=== PATIENT | female | born 1950 | race Caucasian/White ===

== ENCOUNTER → 2017-06-28 09:06 | Outpatient (CLI) | payer OTHER, SELFPAY ==
[2017-06-28 10:05] LABS: Hematocrit 42.2 % (37-47); Hemoglobin 14.3 g/dl (12.0-15.0); Mean Corp Hgb Conc 33.9 g/gl (32-36); Mean Corpuscular Hgb 29.5 pg (27.0-32.0); Mean Platelet Vol. 11.6 fl (6.2-12.0); Platelet Count 286 K/mm3 (150-450); RBC Distribution Width CV 12.3 % (11.6-14.6); RBC Distribution Width SD 38.7 fl (35.1-43.9); Red Blood Count 4.85 M/mm3 (4.2-5.4); White Blood Count 6.1 K/mm3 (4.4-11.0)
[2017-06-28 10:06] LABS: Scan Indicated on CBC? Y/N NO
[2017-06-28 10:27] LABS: Cholesterol 120 mg/dL (200); High Density Lipoprotein 35 mg/dL; Triglycerides 278 mg/dL; Very Low Density Lipoprotein 56 mg/dL (5-40)
[2017-06-28 10:35] LABS: Microalbumin:Creatinine Ratio 10.3 mg/g CRE (<30 mg/g CRE)
== END ==
PROVIDERS: Family Provider Family Medicine; PCP Family Medicine; Visit Provider Family Medicine
DX: I10 Essential (primary) hypertension (principal); E11.9 Type 2 diabetes mellitus without complications; E78.00 Pure hypercholesterolemia, unspecified
CPT/HCPCS: 36415; 80061; 82043; 82570; 83036; 85027

== ENCOUNTER → 2017-11-25 10:05 | Outpatient (CLI) | payer MEDICARE, SELFPAY ==
[2017-11-25 12:37] LABS: Hemoglobin A1c 7.5 % (4.2-6.3)
[2017-11-25 12:38] LABS: ALB/GLOB Ratio 1.2 RATIO (0.9-2.4); AST(SGOT) 38 U/L (15-37); Alanine Aminotransfer ALT/SGPT 53 U/L (13-56); Albumin, Serum 3.9 g/dL (3.2-5.0); Alkaline Phosphatase 73 U/L (45-117); Anion Gap 10 (5-15); BUN 15 mg/dL (7-18); BUN/Creat Ratio 18.8 RATIO (10-20); Chloride 101 mmol/L (98-107); Cholesterol 142 mg/dL (200); EST Glomerular Filtration Rate 76 mL/min (>60); Est Glom Filt Rate - Afr Amer 92 mL/min (>60); Globulin 3.2 g/dL (2.2-4.2); Glucose 174 mg/dL (74-106); High Density Lipoprotein 31 mg/dL; Potassium 3.9 mmol/L (3.5-5.1); Protein, Total 7.1 g/dL (6.4-8.2); Sodium Level 140 mmol/L (136-145); Triglycerides 512 mg/dL
== END ==
PROVIDERS: Family Provider Family Medicine; PCP Family Medicine; Visit Provider Family Medicine
DX: E78.00 Pure hypercholesterolemia, unspecified (principal); E11.9 Type 2 diabetes mellitus without complications
CPT/HCPCS: 36415; 80053; 80061; 83036

== ENCOUNTER → 2018-02-04 12:22 | Outpatient (CLI) | payer MEDICARE, SELFPAY ==
[2018-02-04 14:48] LABS: ALB/GLOB Ratio 1.3 RATIO (0.9-2.4); AST(SGOT) 29 U/L (15-37); Alanine Aminotransfer ALT/SGPT 43 U/L (13-56); Albumin, Serum 4.1 g/dL (3.2-5.0); Alkaline Phosphatase 67 U/L (45-117); Anion Gap 6 (5-15); BUN 14 mg/dL (7-18); BUN/Creat Ratio 21.4 RATIO (10-20); Calcium,Total 9.4 mg/dL (8.5-10.1); Chloride 98 mmol/L (98-107); Creatinine, Serum 0.65 mg/dL (0.55-1.02); EST Glomerular Filtration Rate 96 mL/min (>60); Est Glom Filt Rate - Afr Amer 116 mL/min (>60); Globulin 3.1 g/dL (2.2-4.2); Glucose 133 mg/dL (74-106); Potassium 3.9 mmol/L (3.5-5.1); Protein, Total 7.2 g/dL (6.4-8.2); Sodium Level 136 mmol/L (136-145)
== END ==
PROVIDERS: Family Provider Family Medicine; PCP Family Medicine; Visit Provider Family Medicine
DX: R42 Dizziness and giddiness (principal)
CPT/HCPCS: 36415; 80053

== ENCOUNTER → 2018-07-27 | Outpatient (CLI) | payer MEDICARE, SELFPAY ==
[2018-07-27 13:24] LABS: Microalbumin,Random Urine 20.6 mg/L (NO RANGE EST.); Microalbumin:Creatinine Ratio 12.8 mg/g CRE (<30 mg/g CRE)
[2018-07-27 13:43] LABS: ALB/GLOB Ratio 1.2 RATIO (0.9-2.4); AST(SGOT) 34 U/L (15-37); Alanine Aminotransfer ALT/SGPT 38 U/L (13-56); Albumin, Serum 3.9 g/dL (3.2-5.0); Alkaline Phosphatase 72 U/L (45-117); Anion Gap 10 (5-15); BUN 17 mg/dL (7-18); BUN/Creat Ratio 26.2 RATIO (10-20); Calcium,Total 9.1 mg/dL (8.5-10.1); Chloride 102 mmol/L (98-107); Cholesterol 169 mg/dL (200); Creatinine, Serum 0.65 mg/dL (0.55-1.02); EST Glomerular Filtration Rate 96 mL/min (>60); Est Glom Filt Rate - Afr Amer 116 mL/min (>60); Globulin 3.2 g/dL (2.2-4.2); Glucose 187 mg/dL (74-106); High Density Lipoprotein 40 mg/dL; Potassium 3.8 mmol/L (3.5-5.1); Protein, Total 7.1 g/dL (6.4-8.2); Sodium Level 137 mmol/L (136-145); Thyroid Stim Hormone (TSH) 1.14 uIU/mL (0.358-3.74); Triglycerides 456 mg/dL
== END | disposition home or self-care (01) ==
PROVIDERS: Family Provider Family Medicine; PCP Family Medicine; Referring Provider Family Medicine; Visit Provider Family Medicine
DX: E11.8 Type 2 diabetes mellitus with unspecified complications (principal); E78.00 Pure hypercholesterolemia, unspecified
CPT/HCPCS: 36415; 80053; 80061; 82043; 82570; 83036; 84443

== ENCOUNTER → 2018-10-27 | Outpatient (CLI) | payer MEDICARE, SELFPAY ==
[2018-10-27 10:28] LABS: Hemoglobin A1c 7.1 % (4.2-6.3)
[2018-10-27 10:49] LABS: Cholesterol 117 mg/dL (200); High Density Lipoprotein 36 mg/dL; Triglycerides 344 mg/dL; Very Low Density Lipoprotein 69 mg/dL (5-40)
[2018-10-28 12:47] LABS: Hep C Antibodies <0.1 s/co ratio (0.0-0.9)
== END | disposition home or self-care (01) ==
LOC: MFPLAB 09:22
PROVIDERS: Family Provider Family Medicine; PCP Family Medicine; Referring Provider Family Medicine; Visit Provider Family Medicine
DX: E11.8 Type 2 diabetes mellitus with unspecified complications (principal); E78.00 Pure hypercholesterolemia, unspecified; Z11.59 Encounter for screening for other viral diseases
CPT/HCPCS: 36415; 80061; 83036; 86803

== ENCOUNTER → 2019-07-26 10:42 | Outpatient (CLI) | payer MEDICARE, SELFPAY ==
[2019-07-26 13:08] LABS: Absolute Lymphocyte Count 2.06 X10^3/uL (0.83-4.51); Absolute Neutrophil Count 3.3 X10^3/uL (2.0-7.7); Basophil# 0.08 X10^3/uL; Basophil% 1.2 % (0-1); Eosinophil# 0.25 X10^3/uL; Eosinophils% 3.9 % (0-5); Hematocrit 41.1 % (37-47); Hemoglobin 13.7 g/dL (12.0-15.0); Lymphocyte # 2.06 X10^3/ul (4.0); Lymphocyte % 31.8 % (19-41); Mean Corp Hgb Conc 33.3 g/dL (32-36); Mean Corpuscular Hgb 28.5 pg (27.0-32.0); Mean Corpuscular Volume 85.6 fL (81-99); Mean Platelet Vol. 11.5 fl (6.2-12.0); Monocyte# 0.78 X10^3/uL; NRBC Flagged by Analyzer 0 % (0-5); Neutrophil # 3.28 X10^3/uL (2.7-7.7); Neutrophil % 50.6 % (47-70); Platelet Count 262 K/mm3 (150-450); RBC Distribution Width CV 12.1 % (11.6-14.6); RBC Distribution Width SD 37.9 fl (35.1-43.9); White Blood Count 6.5 K/mm3 (4.4-11.0)
[2019-07-26 13:23] LABS: Hemoglobin A1c 8.9 % (3.8-5.6)
[2019-07-26 13:41] LABS: ALB/GLOB Ratio 1.2 RATIO (0.9-2.4); AST(SGOT) 41 U/L (15-37); Alanine Aminotransfer ALT/SGPT 42 U/L (13-56); Albumin, Serum 3.9 g/dL (3.2-5.0); Alkaline Phosphatase 82 U/L (45-117); Anion Gap 10 (5-15); BUN 15 mg/dL (7-18); BUN/Creat Ratio 16.6 RATIO (10-20); Calcium,Total 8.8 mg/dL (8.5-10.1); Chloride 98 mmol/L (98-107); Creatinine, Serum 0.91 mg/dL (0.55-1.02); EST Glomerular Filtration Rate 65 mL/min (>60); Est Glom Filt Rate - Afr Amer 79 mL/min (>60); Globulin 3.3 g/dL (2.2-4.2); Glucose 252 mg/dL (74-106); Potassium 3.6 mmol/L (3.5-5.1); Protein, Total 7.2 g/dL (6.4-8.2); Sodium Level 135 mmol/L (136-145); Thyroid Stim Hormone (TSH) 1.52 uIU/mL (0.358-3.74)
== END ==
PROVIDERS: PCP Family Medicine; Referring Provider Family Medicine; Visit Provider Family Medicine
DX: R10.13 Epigastric pain (principal); E11.8 Type 2 diabetes mellitus with unspecified complications
CPT/HCPCS: 36415; 80053; 83036; 84443; 85025

== ENCOUNTER → 2019-07-27 | Outpatient (CLI) | payer MEDICARE, SELFPAY ==
[2019-08-01 14:50] LABS: H. PYLORI STOOL AG Negative (Negative)
== END | disposition home or self-care (01) ==
LOC: LABSPEC 13:23
PROVIDERS: PCP Family Medicine; Referring Provider Family Medicine; Visit Provider Family Medicine
DX: R10.13 Epigastric pain (principal)
CPT/HCPCS: 83630; 83986

== ENCOUNTER → 2020-01-19 09:16 | Outpatient (CLI) | payer MEDICARE, SELFPAY ==
[2020-01-19 10:39] LABS: Hemoglobin A1c 7.1 % (3.8-5.6); Microalbumin,Random Urine 13.2 mg/L (NO RANGE EST.); Microalbumin:Creatinine Ratio 8.4 mg/g CRE (<30 mg/g CRE)
[2020-01-19 11:13] LABS: ALB/GLOB Ratio 1.1 RATIO (0.9-2.4); AST(SGOT) 59 U/L (15-37); Alanine Aminotransfer ALT/SGPT 56 U/L (13-56); Albumin, Serum 3.9 g/dL (3.2-5.0); Alkaline Phosphatase 68 U/L (45-117); Anion Gap 7 (5-15); BUN 23 mg/dL (7-18); BUN/Creat Ratio 25.2 RATIO (10-20); Calcium,Total 9.1 mg/dL (8.5-10.1); Chloride 100 mmol/L (98-107); Cholesterol 159 mg/dL (200); Creatinine, Serum 0.91 mg/dL (0.55-1.02); EST Glomerular Filtration Rate 65 mL/min (>60); Est Glom Filt Rate - Afr Amer 78 mL/min (>60); Globulin 3.4 g/dL (2.2-4.2); Glucose 131 mg/dL (74-106); High Density Lipoprotein 31 mg/dL; Potassium 3.5 mmol/L (3.5-5.1); Protein, Total 7.3 g/dL (6.4-8.2); Sodium Level 136 mmol/L (136-145); Thyroid Stim Hormone (TSH) 3.42 uIU/mL (0.358-3.74); Triglycerides 561 mg/dL
[2020-01-19 11:15] LABS: Vitamin D,25 Hydroxy 19.1 ng/mL
== END ==
PROVIDERS: PCP Family Medicine; Visit Provider Family Medicine
DX: I10 Essential (primary) hypertension (principal); M06.4 Inflammatory polyarthropathy; E11.8 Type 2 diabetes mellitus with unspecified complications
CPT/HCPCS: 36415; 80053; 80061; 82043; 82306; 82570; 83036; 84443

== ENCOUNTER → 2020-03-06 10:39 | Outpatient (CLI) | payer MEDICARE, SELFPAY ==
--- NOTE | 2020-03-06 10:41 | BI_ITS ---
MAMMOGRAPHY - BILATERAL SCREENING REASON FOR EXAM: Female, 69 years old. Routine annual screening examination. PERTINENT HISTORY: Grandmother with breast cancer. Prior left excisional breast biopsy and bilateral breast reduction surgery. TECHNIQUE: Digital bilateral breast irina (3D mammographic acquisition) in the CC and MLO projections. 2-D mediolateral oblique (MLO) and craniocaudad (CC) views of both breasts were obtained. CAD: Full Field Digital Mammography with Computer Added Detection was performed. COMPARISON: Comparison is made with prior outside examination dated 06/02/2005. FINDINGS: Breast Composition: The breasts are heterogeneously dense, which may obscure small masses. There are no dominant masses or suspicious calcifications. Benign appearing bilateral scattered calcifications. No other significant abnormalities are identified. There has been no significant change since the prior study. BI/SCREEN MAMM (CAD) W/IRINA BILAT IMPRESSION: Stable bilateral screening mammogram. Yearly follow-up mammogram recommended. (A) ASSESSMENT CATEGORY: BIRADS Category 2: Benign. A letter regarding these results will be sent to the patient by the facility within 30 days. Approximately 10% of breast cancers are not detected by mammography. A normal mammogram should not delay biopsy of a clinically suspicious abnormality. [id number] Electronically Signed: Marty Rodriguez, at 13:00 EST , Service support ,
--- NOTE | 2020-03-06 10:47 | BD_ITS ---
STUDY: DUAL ENERGY X-RAY ABSORPTIOMETRY / DXA REASON FOR EXAM: Female, 69 years old. 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 COMPARISON: Comparison is made with prior examination dated 06/09/2016. FINDINGS: Lumbar Spine (L1-L4): g/cm2 (1.222) / T-score (0.5) / Z-score (2.2) Findings are suggestive of normal bone density with a low fracture risk. Left Femur Total: g/cm2 (1.050) / T-score (0.3) / Z-score (1.9) Left Femoral Neck: g/cm2 (0.915) / T-score (-0.9) / Z-score (0.9) Right Femur Total: g/cm2 (1.037) / T-score (0.2) / Z-score (1.8) Right Femoral Neck: g/cm2 (0.950) / T-score (-0.6) / Z-score (1.1) The T-Scores on the most recent prior examination were: Lumbar Spine (L1-L4): There has been improvement of bone density since the previous examination. Left Femur Total: which represents a worsening of 3%. Right Femur Total: which represents a worsening of 4.1%. BD/Dexa Bone Density Study IMPRESSION: The patient is considered normal as outlined below according to World Alfred Organization (WHO) criteria with a low fracture risk. There has been worsening of bone density since the previous examination. Reference Information: The T-score is the number of standard deviations above or below the standard which is normal for young adults at their peak bone mineral density. The World Health Organization (WHO) interprets the T-scores as follows: Above -1 Normal bone density Between -1 and -2.5 Osteopenia Equal to / or below -2.5 Osteoporosis As a practical clinical guideline, osteopenia may be graded as follows: Mild -1 through -1.5 Moderate -1.6 through -2.0 Severe -2.1 through -2.4 The Z-score is the number of standard deviations above or below age-matched controls. A Z-score of less than -1.5 would be considered abnormal. References: 1. NIH Osteoporosis and Related Bone Diseases www osteo.org 2. International Society for Clinical Densitometry www iscd.org 3. National Osteoporosis Foundation www nof.org Electronically Signed: Marty Rodriguez, at 8:29 EST , Service support ,
== END ==
PROVIDERS: PCP Family Medicine; Referring Provider Family Medicine; Visit Provider Family Medicine
DX: N95.9 Unspecified menopausal and perimenopausal disorder (principal); N95.1 Menopausal and female climacteric states; Z12.31 Encounter for screening mammogram for malignant neoplasm of breast
CPT/HCPCS: 77063; 77067; 77080

== ENCOUNTER → 2020-08-14 08:26 | Outpatient (CLI) | payer MEDICARE, SELFPAY ==
[2020-08-14 10:23] LABS: Absolute Lymphocyte Count 1.96 X10^3/uL (0.83-4.51); Absolute Neutrophil Count 3.9 X10^3/uL (2.0-7.7); Basophil# 0.06 X10^3/uL; Basophil% 0.9 % (0-1); Eosinophil# 0.19 X10^3/uL; Eosinophils% 2.7 % (0-5); Hematocrit 40.3 % (37-47); Hemoglobin 13.1 g/dL (12.0-15.0); Lymphocyte # 1.96 X10^3/ul (0.83-4.51); Lymphocyte % 28.1 % (19-41); Mean Corp Hgb Conc 32.5 g/dL (32-36); Mean Corpuscular Hgb 28.7 pg (27.0-32.0); Mean Corpuscular Volume 88.2 fL (81-99); Mean Platelet Vol. 11.3 fl (6.2-12.0); Monocyte# 0.84 X10^3/uL; NRBC Flagged by Analyzer 0 % (0-5); Neutrophil # 3.91 X10^3/uL (2.7-7.7); Platelet Count 326 K/mm3 (150-450); RBC Distribution Width CV 11.9 % (11.6-14.6); RBC Distribution Width SD 38.3 fl (35.1-43.9); Red Blood Count 4.57 M/mm3 (4.2-5.4)
[2020-08-14 10:36] LABS: Cholesterol 121 mg/dL (200); High Density Lipoprotein 38 mg/dL; Triglycerides 243 mg/dL; Uric Acid 5.4 mg/dL (2.6-6.0); Very Low Density Lipoprotein 49 mg/dL (5-40)
[2020-08-14 10:40] LABS: Hemoglobin A1c 6.5 % (3.8-5.6)
[2020-08-14 10:44] LABS: Vitamin D,25 Hydroxy 26.7 ng/mL
[2020-08-14 10:55] LABS: Microalbumin,Random Urine 9.9 mg/L (NO RANGE EST.); Microalbumin:Creatinine Ratio 15.7 mg/g CRE (<30 mg/g CRE)
== END ==
PROVIDERS: PCP Family Medicine; Referring Provider Family Medicine; Visit Provider Family Medicine
DX: M06.4 Inflammatory polyarthropathy (principal); E11.8 Type 2 diabetes mellitus with unspecified complications
CPT/HCPCS: 36415; 80061; 82043; 82306; 82570; 83036; 84550; 85025

== ENCOUNTER 2021-05-01 09:35 | Outpatient (CLI) | payer MEDICARE, SELFPAY ==
[2021-05-01 10:53] LABS: Hemoglobin A1c 6.5 % (3.8-5.6)
[2021-05-01 11:19] LABS: ALB/GLOB Ratio 1.2 RATIO (0.9-2.4); AST(SGOT) 37 U/L (15-37); Alanine Aminotransfer ALT/SGPT 41 U/L (13-56); Albumin, Serum 3.8 g/dL (3.2-5.0); Alkaline Phosphatase 55 U/L (45-117); Anion Gap 5 (5-15); BUN 17 mg/dL (7-18); Calcium,Total 9.2 mg/dL (8.5-10.1); Chloride 102 mmol/L (98-107); Creatinine, Serum 0.74 mg/dL (0.55-1.02); EST Glomerular Filtration Rate 82 mL/min (>60); Est Glom Filt Rate - Afr Amer 99 mL/min (>60); Globulin 3.3 g/dL (2.2-4.2); Glucose 120 mg/dL (74-106); Protein, Total 7.1 g/dL (6.4-8.2); Sodium Level 137 mmol/L (136-145)
== END 2021-05-01 23:59 | disposition home or self-care (01) ==
LOC: MFPLAB 09:37
PROVIDERS: PCP Family Medicine; Referring Provider Family Medicine; Visit Provider Family Medicine
DX: E11.8 Type 2 diabetes mellitus with unspecified complications (principal)
CPT/HCPCS: 36415; 80053; 83036

== ENCOUNTER → 2022-04-22 | Outpatient (CLI) | payer MEDICARE, SELFPAY ==
--- NOTE | 2022-04-22 10:03 | BI_ITS ---
MAMMOGRAPHY - BILATERAL SCREENING REASON FOR EXAM: Female, 71 years old. Routine annual screening examination. PERTINENT HISTORY: Grandmother with breast cancer. Remote left excisional breast biopsy. TECHNIQUE: Digital bilateral breast irina (3D mammographic acquisition) in the CC and MLO projections. 2-D mediolateral oblique (MLO) and craniocaudad (CC) views of both breasts were obtained. CAD: Full Field Digital Mammography with Computer Added Detection was performed. COMPARISON: Comparison is made with prior study dated 03/06/2020. FINDINGS: Breast Composition: The breasts are heterogeneously dense, which may obscure small masses. There are no dominant masses or suspicious calcifications. Scattered bilateral calcifications. No focal clustering is seen. No other significant abnormalities are identified. There has been no significant change since the prior study. BI/SCRN MAMM (CAD)W/IRINA BILAT IMPRESSION: Stable bilateral screening mammogram. Yearly follow-up mammogram recommended. (A) ASSESSMENT CATEGORY: BIRADS Category 2: Benign. A letter regarding these results will be sent to the patient by the facility within 30 days. Approximately 10% of breast cancers are not detected by mammography. A normal mammogram should not delay biopsy of a clinically suspicious abnormality. [id number] Electronically Signed: Marty Rodriguez MD at 10:58 EST ,
== END | disposition home or self-care (01) ==
LOC: OPBI 10:01
PROVIDERS: PCP Family Medicine; Visit Provider Nurse Practitioner Family
DX: Z12.31 Encounter for screening mammogram for malignant neoplasm of breast (principal)
CPT/HCPCS: 77063; 77067

== ENCOUNTER → 2022-07-21 | Outpatient (CLI) | payer MEDICARE, SELFPAY ==
[2022-07-21 12:27] LABS: Absolute Lymphocyte Count 1.75 X10^3/uL (0.83-4.51); Basophil# 0.08 X10^3/uL; Eosinophils% 2.5 % (0-5); Hematocrit 44.4 % (37-47); Hemoglobin 14.7 g/dL (12.0-15.0); Lymphocyte # 1.75 X10^3/ul (0.83-4.51); Lymphocyte % 21.9 % (19-41); Mean Corp Hgb Conc 33.1 g/dL (32-36); Mean Corpuscular Hgb 29.2 pg (27.0-32.0); Mean Corpuscular Volume 88.3 fL (81-99); Mean Platelet Vol. 12.2 fl (6.2-12.0); Monocyte# 0.87 X10^3/uL; Monocyte% 10.9 % (0-10); NRBC Flagged by Analyzer 0 % (0-5); Neutrophil # 5.04 X10^3/uL (2.7-7.7); Neutrophil % 62.9 % (47-70); Platelet Count 306 K/mm3 (150-450); RBC Distribution Width SD 38.7 fl (35.1-43.9); Red Blood Count 5.03 M/mm3 (4.2-5.4)
[2022-07-21 13:46] LABS: Microalbumin,Random Urine 15.5 mg/L (NO RANGE EST.); Microalbumin:Creatinine Ratio 14.9 mg/g CRE (<30 mg/g CRE)
[2022-07-21 13:50] LABS: ALB/GLOB Ratio 1.1 RATIO (0.9-2.4); AST(SGOT) 107 U/L (15-37); Alanine Aminotransfer ALT/SGPT 75 U/L (13-56); Albumin, Serum 4.1 g/dL (3.2-5.0); Alkaline Phosphatase 67 U/L (45-117); Anion Gap 11 (5-15); BUN 17 mg/dL (7-18); BUN/Creat Ratio 19.3 RATIO (10-20); Calcium,Total 9.8 mg/dL (8.5-10.1); Chloride 95 mmol/L (98-107); Creatinine, Serum 0.88 mg/dL (0.55-1.02); EST Glomerular Filtration Rate 67 mL/min (>60); Est Glom Filt Rate - Afr Amer 81 mL/min (>60); Globulin 3.7 g/dL (2.2-4.2); Glucose 243 mg/dL (74-106); Potassium 3.8 mmol/L (3.5-5.1); Protein, Total 7.8 g/dL (6.4-8.2); Sodium Level 131 mmol/L (136-145)
== END | disposition home or self-care (01) ==
PROVIDERS: PCP Family Medicine; Referring Provider Family Medicine; Visit Provider Family Medicine
DX: E11.8 Type 2 diabetes mellitus with unspecified complications (principal)
CPT/HCPCS: 36415; 80053; 82043; 82570; 84443; 85025

== ENCOUNTER → 2022-08-14 | Outpatient (CLI) | payer MEDICARE, SELFPAY | END | disposition home or self-care (01) | LOC: RAD 17:45 | PROVIDERS: PCP Family Medicine; Referring Provider Family Medicine; Visit Provider Family Medicine | DX: Z00.00 Encounter for general adult medical examination without abnormal findings (principal) ==

== ENCOUNTER → 2022-08-14 | Outpatient (CLI) | payer MEDICARE, SELFPAY ==
--- NOTE | 2022-08-14 13:50 | RAD_ITS ---
INDICATION: congestion, headache, rhinitis EXAMINATION/TECHNIQUE: X-RAY - XR Sinuses Paranasal Min 3 Views COMPARISON: None. FINDINGS: There is no significant mucosal thickening. There are no air-fluid levels. The regional bones are grossly intact. RAD/Sinuses min 3 Views IMPRESSION: Negative sinus series. Electronically Signed: Anish Gamboa MD at 20:41 EDT ,
[2022-08-14 15:37] LABS: Absolute Lymphocyte Count 1.81 X10^3/uL (0.83-4.51); Absolute Neutrophil Count 3.7 X10^3/uL (2.0-7.7); Basophil# 0.04 X10^3/uL; Basophil% 0.6 % (0-1); Eosinophil# 0.16 X10^3/uL; Eosinophils% 2.5 % (0-5); Hematocrit 41.5 % (37-47); Hemoglobin 13.9 g/dL (12.0-15.0); Lymphocyte # 1.81 X10^3/ul (0.83-4.51); Lymphocyte % 28.1 % (19-41); Mean Corp Hgb Conc 33.5 g/dL (32-36); Mean Corpuscular Hgb 29.8 pg (27.0-32.0); Mean Corpuscular Volume 89.1 fL (81-99); Mean Platelet Vol. 11.6 fl (6.2-12.0); Monocyte# 0.73 X10^3/uL; Monocyte% 11.3 % (0-10); NRBC Flagged by Analyzer 0 % (0-5); Neutrophil # 3.69 X10^3/uL (2.7-7.7); Neutrophil % 57.2 % (47-70); Platelet Count 287 K/mm3 (150-450); RBC Distribution Width CV 12.4 % (11.6-14.6); RBC Distribution Width SD 40.2 fl (35.1-43.9); Red Blood Count 4.66 M/mm3 (4.2-5.4); White Blood Count 6.5 K/mm3 (4.4-11.0)
[2022-08-14 16:08] LABS: Anion Gap 10 (5-15); BUN 18 mg/dL (7-18); BUN/Creat Ratio 23.7 RATIO (10-20); CRP < 2.90 mg/L (0.0-3.0); Calcium,Total 9.3 mg/dL (8.5-10.1); Chloride 105 mmol/L (98-107); Creatinine, Serum 0.76 mg/dL (0.55-1.02); EST Glomerular Filtration Rate 79 mL/min (>60); Est Glom Filt Rate - Afr Amer 96 mL/min (>60); Glucose 198 mg/dL (74-106); Sodium Level 139 mmol/L (136-145)
[2022-08-14 16:22] LABS: Erythrocyte Sedimentation Rate 6 mm/hr (0-30)
[2022-08-20 15:08] LABS: Cytoplasmic Ab (C-ANCA) <1:20 titer (Neg:<1:20); Immunoglobulin E 5 IU/mL (6-495); PROEL- A/G Ratio 1.4 (0.7-1.7); PROEL- Albumin 3.9 g/dL (2.9-4.4); PROEL- Alpha-1 Globulin 0.2 g/dL (0.0-0.4); PROEL- Alpha-2 Globulin 0.9 g/dL (0.4-1.0); PROEL- Gamma Globulin 0.7 g/dL (0.4-1.8); PROEL- Globulin, Total 2.7 g/dL (2.2-3.9); PROEL- TOTAL PROTEIN 6.6 g/dL (6.0-8.5); Perinuclear Ab (P-ANCA) <1:20 titer (Neg:<1:20)
== END | disposition home or self-care (01) ==
LOC: MTLAB 13:50
PROVIDERS: PCP Family Medicine; Referring Provider Family Medicine; Visit Provider Family Medicine
DX: R51.9 Headache, unspecified (principal); J31.0 Chronic rhinitis; R09.81 Nasal congestion
CPT/HCPCS: 36415; 70220; 80048; 82785; 84165; 85025; 85652; 86140; 86256

== ENCOUNTER 2022-09-18 10:00 | Outpatient (RCR) | payer MEDICARE, SELFPAY ==
--- NOTE | 2022-07-28 18:36 | HP.PTEVAL ---
Patient's Visit Information CHARISMA SHARPE is a 71 year old F referred to Physical Therapy by Dr. Cruz Guido MD with a diagnosis of poly arhtritis hips and knees. Date of Evaluation: 07/28/22 Physical Therapist: Cruz Breaux, DPT, OCS, CSCS - Visit Plan Frequency: 2x /Week Duration: 4 Weeks Plan: 2x/week for 4 weeks for pool based hip strength, core strength and please progress to HEP patient can o at home for the same with pics. She can progress her walking at home as long as not painful in hips or knees. AROM in pool to hips and knees. - Subjective Dr. uGido sent her here as A1c jumped adn wants to bump up walking. Both hips hurt lateral posterior. Chronic. Purposeful fast walk will cause it, standing is OK. Hurts if walking fast to 5/10. Mostly gone with sitting. Aches at rest. Worse if walking. Knee hurts L walking around yard. 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 Sleep is not interrupted. Not employed. Tries to walk off and on in winter. One mile for last month or so. Basic ADLs done, careful on steps due to L knee and takes them slow. Hobbies include: crafting, reading and they are no problem. Has DM and possibly neuroapthy, No falls lately - Pain B hips Pain Intensity (Out of 10): 0 Pain Intensity Range: 0, 6 Comment: hurts with sitting too long. - Objective Walks with short steps but I back to PT. Transfers chair and bed I. Steps are reciprocal but weak on L leg likely due to knee pain, railing required. Balance is good. LB aROM WFL and without pain. hip aROM WFL and slight pain end range IR B but good ROM. flexibility is WNL without pain today. - hip scour, slight + FADDIR, - DENIS. knee and ankle AROM WFL. reflexes 1/3 patella adn achilles. Sensation WNL to gross light touch B LE. strength is 4/5 in knees and ankles, 4 in hip flexion, 3+ in abductiona dn extension B. ain with L hip abd resisted. - tenderness in trochanter or ITB. - Balance/Special Test Scores Lower Extremity Functional Score: 45 - Goals Goal 1:: Walk 2 miles without pain or fatigue Goal Time Frame: 2-4 Weeks Goal 2:: I appropriate HEP for hip stabs and knee strength via HEP Goal Time Frame: 4-6 Weeks Goal 3:: patient feel 75% better in hips and knees overall Goal Time Frame: 4-6 Weeks Goal 4:: Descand steps without weakness L knee Goal Time Frame: 4-6 Weeks Goal 5:: LEFS 50 Goal Time Frame: 4-6 Weeks - Rehabilitation Potential Physical Therapy Diagnosis: degenerative changes and weakness in hips limiting function Rehabilitation Potential: Fair - Anticipated Interventions Patient/Client Instruction: Educate patient on: Condition, Plan of Care For the Purpose of:: To decrease pain, To improve muscle performance and motor function, To improve gait and locomotor functions Therapeutic Exercise to Include: Strength training, In an aquatic setting, Passive ROM, Active ROM, Dynamic Lumbar Stabilization For the Purpose of:: To decrease pain, To increase ROM, To improve nutrient delivery to tissue, To improve muscle performance and motor function, To improve gait and locomotor functions Thank you for the opportunity to evaluate your patient. For Medicare and Medicare HMO plans, please review the plan of care and approve it. It will need to be FAXED BACK to us at [phone] for Medicare purposes. For Medicare only, by signing this I certify the plan of care. Please let me know if there are questions or concerns regarding this plan of care. Physician Signature: Date:
--- NOTE | 2022-08-31 10:53 | HP.PTREVAL_ITS ---
Re-Evaluation Intro: Dr. Cruz Guido MD, It has been my pleasure to treat CHARISMA SHARPE over the last 8 visits for poly arhtritis hips and knees. Please see the progress note below for an update on the physical therapy plan of care! Subjective Subjective: Was on vacation in [facility] [place] last week adn did lots of stairs. She feels like she is getting better. Pool treated her well. Hips and knees doing better. Managed steps with care without much pain. Walked on beach taking time without difficulty. No exercises while gone. joined [employer]. Objective Objective/Function: walking well without gait deviations today. Steps up and down I with only slight weakness R descending. New goal set and POC wiht good prognosis. Plan Plan Plan: 2-3x/week for 2 weeks for teach gym program for LE , core adn postural strength to be completed I at d/c...pt did not want to continue in pool on her own. get list for I when able. Balance/Gait/Functional tests Balance/Special Test Scores Lower Extremity Functional Score: 50 Goals Goals Goal 1:: Walk 2 miles without pain or fatigue Goal Time Frame: 2-4 Weeks Goal Progress: Goal Met Goal 2:: I appropriate HEP for hip stabs and knee strength via HEP Goal Time Frame: 4-6 Weeks Goal Progress: met, wants gym Goal 3:: patient feel 75% better in hips and knees overall Goal Time Frame: 4-6 Weeks Goal Progress: 80% Goal 4:: Descand steps without weakness L knee Goal Time Frame: 4-6 Weeks Goal 5:: LEFS 50 Goal Time Frame: 4-6 Weeks Goal Progress: Goal Met Goal 6:: New goal, I gym ex to maintain improvements in pain. Goal Time Frame: 2-4 Weeks Anticipated Interventions Anticipated Interventions Patient/Client Instruction: Educate patient on: Condition and Plan of Care For the Purpose of:: To decrease pain, To improve muscle performance and motor function and To improve gait and locomotor functions Therapeutic Exercise to Include: Strength training, In an aquatic setting, Passive ROM, Active ROM and Dynamic Lumbar Stabilization For the Purpose of:: To decrease pain, To increase ROM, To improve nutrient delivery to tissue, To improve muscle performance and motor function and To improve gait and locomotor functions Re-Evaluation Ending Re-evaluation ending: Please do not hesitate to contact me at [phone] by phone or if you have questions or concerns regarding this new plan of care! Sincerely, Cruz Breaux, DPT, OCS, CSCS
--- NOTE | 2022-09-18 10:13 | HP.PTDCSUM ---
Discharge Summary D/C summary: It has been my pleasure to treat CHARISMA SHARPE referred by Dr. Cruz Guido MD, with the diagnosis of poly arhtritis hips and knees for a total of 14 visit(s). Discharge Date: 09/18/22 Please see the following information for a summary of their discharge status. Subjective Subjective: Pain has been 2/10 intermittently in hips and knees. It is old people ache. Has not been walking since vacation. Other activities are normal. Feels like she could do ex at home adn has ex sheet. Will see doctor in 3 months. Pain B hips: Pain Intensity (Out of 10): 0 B knees: Pain Intensity (Out of 10): 0 Back: Pain Intensity (Out of 10): 0 Overall Improvement % Improvement: 95 Objective Objective/Function: steps up and down with one rail I without obvious weakness or pain today. walking well. No complaints or problems. Goals Goal 1:: Walk 2 miles without pain or fatigue Goal Progress: Goal Met Goal 2:: I appropriate HEP for hip stabs and knee strength via HEP Goal Progress: Goal Met Goal 3:: patient feel 75% better in hips and knees overall Goal Progress: 95% Goal 4:: Descand steps without weakness L knee Goal Progress: Goal Met Goal 5:: LEFS 50 Goal Progress: Goal Met Goal 6:: New goal, I gym ex to maintain improvements in pain. Goal Progress: Goal Met Plan Plan: d/c to gym program D/C Information Discharge Comments: Will continue I in gym exercises via silver sneakers. d/c sentence: If there are questions or concerns regarding this patient's physical therapy, please feel free to call me at [phone]. Thank you for the referral of this patient. Sincerely, Cruz Breaux, DPT, OCS, CSCS Balance/Gait/Functional tests Balance/Special Test Scores Lower Extremity Functional Score: 59
== END 2022-09-18 19:00 | disposition home or self-care (01) ==
LOC: PT 10:00
PROVIDERS: PCP Family Medicine; Referring Provider Family Medicine; Visit Provider Family Medicine
DX: M13.0 Polyarthritis, unspecified (principal)
CPT/HCPCS: 97110; 97113; 97161; 97164

== ENCOUNTER → 2022-12-17 | Outpatient (CLI) | payer MEDICARE, SELFPAY ==
[2022-12-17 15:24] LABS: Absolute Neutrophil Count 2.6 X10^3/uL (2.0-7.7); Basophil# 0.06 X10^3/uL; Basophil% 1.1 % (0-1); Eosinophil# 0.13 X10^3/uL; Eosinophils% 2.4 % (0-5); Hematocrit 43.5 % (37-47); Hemoglobin 13.9 g/dL (12.0-15.0); Lymphocyte % 34.8 % (19-41); Mean Corpuscular Hgb 28.8 pg (27.0-32.0); Mean Corpuscular Volume 90.2 fL (81-99); Mean Platelet Vol. 12.1 fl (6.2-12.0); Monocyte# 0.72 X10^3/uL; Monocyte% 13.2 % (0-10); NRBC Flagged by Analyzer 0 % (0-5); Neutrophil # 2.63 X10^3/uL (2.7-7.7); Neutrophil % 48.1 % (47-70); Platelet Count 273 K/mm3 (150-450); RBC Distribution Width SD 39.8 fl (35.1-43.9); Red Blood Count 4.82 M/mm3 (4.2-5.4); White Blood Count 5.5 K/mm3 (4.4-11.0)
[2022-12-17 16:09] LABS: Microalbumin,Random Urine 8.3 mg/L (NO RANGE EST.); Microalbumin:Creatinine Ratio 55.3 mg/g CRE (<30 mg/g CRE)
[2022-12-17 16:22] LABS: ALB/GLOB Ratio 1.1 RATIO (0.9-2.4); AST(SGOT) 59 U/L (15-37); Alanine Aminotransfer ALT/SGPT 66 U/L (13-56); Albumin, Serum 3.9 g/dL (3.2-5.0); Alkaline Phosphatase 77 U/L (45-117); Anion Gap 8 (5-15); BUN 14 mg/dL (7-18); BUN/Creat Ratio 19.4 RATIO (10-20); CRP < 2.90 mg/L (0.0-3.0); Calcium,Total 9.6 mg/dL (8.5-10.1); Chloride 104 mmol/L (98-107); Creatinine, Serum 0.72 mg/dL (0.55-1.02); EST Glomerular Filtration Rate 84 mL/min (>60); Est Glom Filt Rate - Afr Amer 102 mL/min (>60); Globulin 3.5 g/dL (2.2-4.2); Glucose 189 mg/dL (74-106); Protein, Total 7.4 g/dL (6.4-8.2); Sodium Level 138 mmol/L (136-145)
[2022-12-21 16:08] LABS: Cytoplasmic Ab (C-ANCA) <1:20 titer (Neg:<1:20); Perinuclear Ab (P-ANCA) <1:20 titer (Neg:<1:20)
== END | disposition home or self-care (01) ==
LOC: MFPLAB 12:00
PROVIDERS: PCP Family Medicine; Visit Provider Family Medicine
DX: I10 Essential (primary) hypertension (principal); E11.9 Type 2 diabetes mellitus without complications; R42 Dizziness and giddiness
CPT/HCPCS: 36415; 80053; 82043; 82570; 85025; 86140; 86256

== ENCOUNTER → 2023-03-11 | Outpatient (CLI) | payer MEDICARE, SELFPAY ==
--- OUTSIDE RECORDS SUMMARY | 2023-03-11 09:47 | XMS RPT_ITS | CCD ---
Author Name Unknown Address [address] [place] [address] Organization [facility] Care Team Providers Care Bank Operations Officer Name Role Phone Ioana MUKHERJEE, Melba Bethea Unavailable Unavailabl e Fast DO, Audrey A Unavailable Nellie Fernández Unavailable Unavailable Slamerissa MUKHERJEE, Hawa Unavailable Unavailable Unavailable Unavailable Hay BRYAN, Cruz Coronel Primary Care Provider Allergies Allergy Classification Reported Allergen(s) Allergy Type Date of Onset Reaction(s) Facility (1 source) SUMAtriptan; Translations: [Sumatriptan *MIGRAINE PRODUCTS*] Drug Allergy [facility] Work Phone: (1 source) Sumyacin Allergy to substance (finding) [facility] Work Phone: (2 sources) Tetracycline Drug Allergy [facility] Work Phone: Medications Completed/Discontinued Medications Medication Drug Class(es) Dates Sig (Normalized) Sig (Original) Acetaminophen (2 sources) acetaminophen (T YLENOL ORAL) Take by mouth once daily. 0 Active Problems Active Problems Problem Classification Problem Date Documented Da te Episodic/Chronic Diabetes mellitus with complications (1 source) Diabetes mellitus without mention of complication, type II or unspecified type, uncontrolled; Translations: [Diabetes mellitus type 2, uncontrolled, without complications] 04-12-2015 Chronic Diabetes mellitus without complication (2 sources) Type 2 diabetes mellitus; Translations: [Diabetes mellitus type II, controlled] Onset: 06-10-2016 06-10-2016 Chronic Diabetes mellitus without complication (15 sources) Diabetes mellitus without complication Diseases of mouth; excluding dental (1 source) Glossodynia; Translations: [Burning Tongue (Glossodynia)] 04-12-2015 Episodic Past or Other Problems Problem Classification Problem Date Documented Da te Episodic/Chronic Acute bronchitis (1 source) Acute bronchitis; Translations: [Bronchitis, acute] Resolved: 08-01-2012 12-04-2014 Episodic Chronic obstructive pulmonary disease and bronchiectasis (1 source) Bronchitis; Translations: [Bronchitis] Resolved: 10-05-2014 12-04-2014 Episodic Headache; including migraine (1 source) Headache; including migraine Pneumonia (except that caused by tuberculosis or sexually transmitted disease) (1 source) Bacterial pneumonia; Translations: [Unspecified bacterial pneumonia] Resolved: 10-06-2010 01-15-2015 Episodic Pneumonia (except that caused by tuberculosis or sexually transmitted disease) (2 sources) Pneumonia (except that caused by tuberculosis or sexually transmitted disease) Unclassified (1 source) Deliveries (Parity); Translations: [Deliveries (Parity)] 04-12-2015 Results Test Name Value Interpretation Reference Range Facil ity Vital Signs Date Time Vital Sign Value Performing Clinician Facility 06-03-2021 11:49-0400 Diastolic blood pressure 66 mm[Hg] Doc Rodriguez MD Work Phone: [facility] 06-03-2021 11:49-0400 Heart rate 85 /min Doc Rodriguez MD Work Phone: [facility] 06-03-2021 11:49-0400 Respiratory rate 16 /min Doc Rodriguez MD Work Phone: [facility] 06-03-2021 11:49-0400 SaO2% (BldA) [Mass fraction] 94 % Doc Rodriguez MD Work Phone: [facility] 06-03-2021 11:49-0400 Systolic blood pressure 113 mm[Hg] Doc Rodriguez MD Work Phone: [facility] 06-03-2021 10:24-0400 Body temperature 98.6 [degF] Doc Rodriguez MD Work Phone: [facility] 06-10-2016 15:41-0400 BMI (Body Mass Index) 28.42 kg/m2 Melba Triplett LPN [facility] Work Phone: 06-10-2016 15:41-0400 Body Temperature 98.6 [degF] Melba Triplett LPN [facility] Work Phone: 06-10-2016 15:41-0400 BP Diastolic 86 mm[Hg] Melba [facility] Work Phone: 06-10-2016 15:41-0400 BP Systolic 127 mm[Hg] Melba [facility] Work Phone: 06-10-2016 15:41-0400 Height 157.48 cm Melba Ott [facility] Work Phone: 06-10-2016 15:41-0400 Pulse (Heart Rate) 83 /min Melba Ott [facility] Work Phone: 06-10-2016 15:41-0400 Pulse Oximetry 91 % Melba [facility] Work Phone: 06-10-2016 15:41-0400 Respiratory Rate 16 /min Melba Ott [facility] Work Phone: 06-10-2016 15:41-0400 Weight 70.49 kg Melba Triplett LPN [facility] Work Phone: 04-12-2015 11:58-0500 Body height 156.21 cm [facility] Work Phone: 04-12-2015 11:58-0500 Body mass index (BMI) [Ratio] 28.44 kg/m2 [facility]; [facility] Work Phone: 04-12-2015 11:58-0500 Body surface area Derived from formula 1.7 m2 [facility] Work Phone: 04-12-2015 11:58-0500 Body temperature 97.6 [degF] Nellie Flinner [facility] Work Phone: Encounters Encounter Date Encounter Type Care Provider Facility Start: 06-03-2021 End: 06-03-2021 Subsequent hospital visit by physician Doc Rodriguez MD Work Phone: Ambulatory Surgery Procedures Date Procedure Procedure Detail Performing Clinician Start: 06-03-2021 Colon ca scrn not hi rsk ind Melba DAMON-C Work Phone: Start: 06-03-2021 Gluc bld gluc mntr d ev cleared fda spec home use Doc Rodriguez MD Work Phone: Start: 06-03-2021 Colonoscopy Doc chambers MD Work Phone: Start: 01-30-2015 Mammography [facility] Work Phone: Start: 01-02-2015 End: 01-02-2015 Ecg routine ecg w/least 12 lds w/i&r [MEASUREMENTS ANALYSIS] Date of Test: 01/02/2015 10:54:56; Heart Rate: 81; NH Interval: 166; QRS: 98; QT Interval: 380; Corrected QT Interval (QTc): 416; P Wave Houck: 38; QRS Wave Houck: 48; T Wave Houck: 46; Blood Pressure: 132/84 [ECG DIAGNOSTIC STATEMENTS] Date of Test: 01/02/2015 10:54:56; Summary: Sinus Rhythm Low voltage in precordial leads. ABNORMAL Audrey A Fast DO Work Phone: Plan of Treatment Date Care Activity Detail Author Start: 06-04-2031 Colonoscopy COLONOSCOPY [facility] Start: 06-04-2031 COLORECTAL CANCER SCREENING COLORECTAL CANCER SCREENING [facility] Start: 10-30-2021 Influenza vaccination INFLUENZA (Season Ended) [facility] Start: 03-01-2021 ADVANCE DIRECTIVE DISCUSSION ADVANCE DIRECTIVE DISCUSSION [facility] Start: 01-31-2016 Mammography MAMMOGRAM [facility] Start: 04-12-2015 Procedure Education Eprescribed prescriptions (G8553) [facility] Work Phone: Start: 04-12-2015 Blood count complete auto&auto difrntl wbc CBC W/AUTO DIFF WBC (74391) [facility]; [facility] Work Phone: Start: 04-12-2015 Lipid panel LIPID PANEL (04067) [facility] Work Phone: Start: 04-12-2015 Comprehensive metabolic panel METABOLIC PANEL, COMPREHENSIVE (83569) [facility]; [facility] Work Phone: Start: 04-12-2015 Hemoglobin glycosylated a1c HGB A1C (28712) [facility]; [facility] Work Phone: Start: 03-22-2015 Procedure Education Eprescribed prescriptions (G8553) [facility]; [facility] Work Phone: Start: 01-03-2015 Provider Instructions for Treatment Diet, Exercise, and Wt loss [facility]; [facility] Work Phone: Start: 01-02-2015 Procedure Education Eprescribed prescriptions (G8553) [facility]; [facility] Work Phone: Start: 01-02-2015 Lipid panel LIPID PANEL (28840) [facility] Work Phone: Start: 01-02-2015 Blood count complete auto&auto difrntl wbc CBC with auto diff (64984) [facility]; [facility] Work Phone: Start: 01-02-2015 Comprehensive metabolic panel METABOLIC PANEL, COMPREHENSIVE (54409) [facility]; [facility] Work Phone: Start: 01-02-2015 Hemoglobin glycosylated a1c Hemoglobin Glyclated (HGB A1C) (21033) [facility]; [facility] Work Phone: Start: 12-30-2014 Blood count complete auto&auto difrntl wbc CBC W/AUTO DIFF WBC (01620) [facility]; [facility] Work Phone: Start: 12-30-2014 Lipid panel LIPID PANEL (32683) [facility] Work Phone: Start: 12-30-2014 Urine albumin quantitative MICROALBUMIN: CREATININE RATIO (49932) AND (17086) [facility]; [facility] Work Phone: Start: 12-30-2014 Comprehensive metabolic panel METABOLIC PANEL, COMPREHENSIVE (88565) [facility]; [facility] Work Phone: Start: 10-05-2014 Procedure Education Eprescribed prescriptions (G8553) [facility]; [facility] Work Phone: Start: 10-05-2014 Blood count complete auto&auto difrntl wbc CBC W/AUTO DIFF WBC (80726) [facility]; [facility] Work Phone: Start: 10-05-2014 Hepatic function panel HEPATIC FUNCTION PANEL (30048) [facility]; [facility] Work Phone: Start: 10-05-2014 Lipid panel LIPID PANEL (87319) [facility] Work Phone: Start: 10-05-2014 Alpha-fetoprotein serum [id number] (64234) [facility]; [facility] Work Phone: Start: 07-04-2014 Provider Instructions for Treatment [facility]; [facility] Work Phone: Start: 06-20-2014 Patient Education Bursitis: knee [facility]; [facility] Work Phone: Start: 06-20-2014 Procedure Education Eprescribed prescriptions (G8553) [facility]; [facility] Work Phone: Start: 06-20-2014 Provider Instructions for Treatment [facility]; [facility] Work Phone: Start: 01-04-2014 Provider Instructions for Treatment [facility]; [facility] Work Phone: Start: 2013 BONE DENSITY BONE DENSITY [facility] Start: 2013 PNEUMOVAX AGE 65 AND OVER WITH 5YR LOOKBACK (#1) PNEUMOVAX AGE 65 AND OVER WITH 5YR LOOKBACK (#1) [facility] Start: 09-04-2013 Antinuclear antibodies arsh ARSH (ANTINUCLEAR ANTIBODY) (44614) [facility]; [facility] Work Phone: Start: 09-04-2013 Rheumatoid factor quantitative RHEUMATOID FACTOR-QUANT (16895) [facility]; [facility] Work Phone: Start: 09-04-2013 Sedimentation rate rbc non-automated SED RATE ERYTHROCYTE (21778) [facility]; [facility] Work Phone: Start: 09-04-2013 C-reactive protein C-REACTIVE PROTEIN (96963) [facility]; [facility] Work Phone: Start: 09-04-2013 Procedure Education Eprescribed prescriptions (G8553) [facility]; [facility] Work Phone: Start: 09-04-2013 Provider Instructions for Treatment Diet, Exercise, and Wt loss [facility]; [facility] Work Phone: Start: 09-04-2013 Blood count manual cell count each CBC WITH MANUAL DIFF (19046) [facility]; [facility] Work Phone: Start: 09-04-2013 Comprehensive metabolic panel METABOLIC PANEL, COMPREHENSIVE (93296) [facility]; [facility] Work Phone: Start: 09-04-2013 Lipid panel LIPID PANEL (63149) [facility] Work Phone: Start: 07-13-2013 Provider Instructions for Treatment [facility]; [facility] Work Phone: Start: 11-18-2012 Cul bact xcpt urine blood/stool aerobic isol MARLON CULTURE-OTHER (08608) [facility]; [facility] Work Phone: Start: 11-18-2012 [place]oo streptococcus group a Rapid Strep Test, Office (59414) [facility]; [facility] Work Phone: Start: 08-01-2012 Comprehensive metabolic panel METABOLIC PANEL, COMPREHENSIVE (09743) [facility]; [facility] Work Phone: Start: 08-01-2012 Lipid panel LIPID PANEL (70553) [facility] Work Phone: Start: 08-01-2012 Patient Education High Cholesterol (Hypercholesterolemia) *: cholesterol [facility]; [facility] Work Phone: Start: 12-15-2011 Patient Education Cough: cold [facility]; [facility] Work Phone: Start: 12-15-2011 Provider Instructions for Treatment *Antibiotic Usage Education - Female [facility]; [facility] Work Phone: Start: 06-01-2011 Lipid panel LIPID PANEL (70541) [facility]; [facility] Work Phone: Start: 06-01-2011 Comprehensive metabolic panel METABOLIC PANEL, COMPREHENSIVE (14341) [facility]; [facility] Work Phone: Start: 06-01-2011 Provider Instructions for Treatment [facility]; [facility] Work Phone: Start: 02-02-2011 Provider Instructions for Treatment *Antibiotic Usage Education - Female [facility]; [facility] Work Phone: Start: 10-06-2010 Provider Instructions for Treatment Diet, Exercise, and Wt loss [facility]; [facility] Work Phone: Start: 10-06-2010 Comprehensive metabolic panel METABOLIC PANEL, COMPREHENSIVE (99199) [facility]; [facility] Work Phone: Start: 10-06-2010 Lipid panel LIPID PANEL (80898) [facility]; [facility] Work Phone: Start: 10-06-2010 Hemoglobin glycosylated a1c HgA1C , Office (10902) [facility]; [facility] Work Phone: Start: 10-01-2010 Lipid panel Lipid Panel (73388) [facility]; [facility] Work Phone: Start: 10-01-2010 Urinalysis qual/semiquant except immunoassays URINALYSIS (62763) [facility]; [facility] Work Phone: Start: 10-01-2010 Urine albumin quantitative MICROALBUMIN: CREATININE RATIO (08425) AND (80553) [facility]; [facility] Work Phone: Start: 10-01-2010 Comprehensive metabolic panel Metabolic Panel, Comprehensive (53852) [facility]; [facility] Work Phone: Start: 10-01-2010 Blood count manual cell count each CBC with manual diff (06928) [facility]; [facility] Work Phone: Start: 03-25-2010 Provider Instructions for Treatment [facility]; [facility] Work Phone: Start: 02-18-2010 Provider Instructions for Treatment *Antibiotic Usage Education - Female [facility]; [facility] Work Phone: Start: 05-22-2009 Provider Instructions for Treatment *Cholesterol - Medication Side Effects [facility]; [facility] Work Phone: Start: 05-22-2009 Hepatic function panel HEPATIC FUNCTION PANEL (19646) [facility]; [facility] Work Phone: Start: 05-22-2009 Lipid panel LIPID PANEL (92504) [facility]; [facility] Work Phone: Start: 05-14-2009 Provider Instructions for Treatment *Antibiotic Usage Education - Female [facility]; [facility] Work Phone: Start: 01-22-2009 Hepatic function panel HEPATIC FUNCTION PANEL (88585) [facility]; [facility] Work Phone: Start: 01-22-2009 Comprehensive metabolic panel METABOLIC PANEL, COMPREHENSIVE (35101) [facility]; [facility] Work Phone: Start: 01-22-2009 Lipid panel LIPID PANEL (91504) [facility]; [facility] Work Phone: Start: 01-22-2009 Urine albumin quantitative MICROALBUMIN: CREATININE RATIO (30943) AND (92036) [facility]; [facility] Work Phone: Start: 01-22-2009 Provider Instructions for Treatment Diet and Exercise [facility]; [facility] Work Phone: Start: 07-03-2008 Provider Instructions for Treatment [facility]; [facility] Work Phone: Start: 06-28-2008 Provider Instructions for Treatment Diet and Exercise [facility]; [facility] Work Phone: Start: 06-28-2008 Hepatic function panel HEPATIC FUNCTION PANEL (94686) [facility]; [facility] Work Phone: Start: 06-28-2008 Lipid panel LIPID PANEL (30908) [facility] Work Phone: Start: 06-28-2008 Comprehensive metabolic panel METABOLIC PANEL, COMPREHENSIVE (49163) [facility]; [facility] Work Phone: Start: 02-27-2008 Hepatic function panel HEPATIC FUNCTION PANEL (08050) [facility]; [facility] Work Phone: Start: 02-27-2008 Lipid panel LIPID PANEL (72455) [facility] Work Phone: Start: 01-19-2008 Provider Instructions for Treatment Diet, Exercise, and Wt loss [facility]; [facility] Work Phone: Start: 01-19-2008 Assay of thyroid stimulating hormone tsh TSH (76728) [facility]; [facility] Work Phone: Start: 01-19-2008 Urine albumin quantitative MICROALBUMIN: CREATININE RATIO (52982) AND (44717) [facility]; [facility] Work Phone: Start: 01-19-2008 Comprehensive metabolic panel METABOLIC PANEL, COMPREHENSIVE (20019) [facility]; [facility] Work Phone: Start: 01-19-2008 Lipid panel LIPID PANEL (49233) [facility]; [facility] Work Phone: Start: 01-19-2008 Blood count manual cell count each CBC WITH MANUAL DIFF (63104) [facility]; [facility] Work Phone: Start: 01-05-2008 Provider Instructions for Treatment [facility]; [facility] Work Phone: Start: 10-17-2007 Provider Instructions for Treatment Knee Injections [facility]; [facility] Work Phone: Start: 09-14-2007 Provider Instructions for Treatment ICE [facility]; [facility] Work Phone: Start: 07-12-2007 Provider Instructions for Treatment [facility]; [facility] Work Phone: Start: 12-14-2006 Provider Instructions for Treatment [facility]; [facility] Work Phone: Start: 05-26-2006 Provider Instructions for Treatment FOLLOW UP IN 3 MONTHS [facility]; [facility] Work Phone: Start: 05-26-2006 Blood count manual cell count each CBC WITH MANUAL DIFF (58988) [facility]; [facility] Work Phone: Start: 05-26-2006 Lipid panel LIPID PANEL (66265) [facility] Work Phone: Start: 05-26-2006 Comprehensive metabolic panel METABOLIC PANEL, COMPREHENSIVE (11336) [facility]; [facility] Work Phone: Start: 05-26-2006 Urine albumin quantitative MICROALBUMIN: CREATININE RATIO (83076) AND (64028) [facility]; [facility] Work Phone: Start: 03-05-2006 Provider Instructions for Treatment FOLLOW UP IN 3 MONTHS [facility]; [facility] Work Phone: Start: 03-05-2006 Lipid panel LIPID PANEL (99917) [facility] Work Phone: Start: 03-05-2006 Hepatic function panel HEPATIC FUNCTION PANEL (20292) [facility]; [facility] Work Phone: Start: 02-01-2006 Lipid panel LIPID PANEL (78739) [facility] Work Phone: Start: 02-01-2006 Hepatic function panel HEPATIC FUNCTION PANEL (50771) [facility]; [facility] Work Phone: Start: 02-01-2006 Provider Instructions for Treatment FOLLOW UP - MAKE APPT AFTER DIAGNOSTIC TESTS [facility]; [facility] Work Phone: Start: 1998 SHINGRIX VACCINE (1 of 2) SHINGRIX VACCINE (1 of 2) [facility] Start: 1993 COLOGUARD (FIT-DNA) COLOGUARD (FIT-DNA) [facility] Start: 1993 Colonoscopy COLONOSCOPY [facility] Start: 1993 COLORECTAL CANCER SCREENING COLORECTAL CANCER SCREENING [facility] Start: [address] COLONOGRAPHY [facility] Start: 1993 DIABETES SCREEN DIABETES SCREEN [facility] Start: 1993 FECAL OCCULT BLOOD FECAL OCCULT BLOOD [facility] Start: 1993 LIPID SCREEN LIPID SCREEN [facility] Start: 1993 SIGMOIDOSCOPY SIGMOIDOSCOPY [facility] Start: 12-14-1967 Urine microalbumin profile DTAP,TDAP,TD (1 - Tdap) [facility] Start: 1966 HEPATITIS C SCREENING HEPATITIS C SCREENING [facility] Start: 1960 Adult depression screening assessment DEPRESSION SCREENING [facility] Start: 1953 COVID-19 VACCINE (1) COVID-19 VACCINE (1) [facility] End: 04-24-2022 Screening colonoscopy COLONOSCOPY SCREENING Endoscopy Routine Encounter for colonoscopy following surgery for colon cancer 1 Occurrences starting 04/24/2021 until 04/24/2022 [facility] Work Phone: Payers Date Payer Category Payer Medicare [employer] MEDICARE A ETNA MEDICARE PPO [id number] 2021-Present [phone] [address] [place] [address] O [id number] Unknown Social History Date Type Detail Facility Alcohol Use Alcohol Use [facility] Work Phone: Clinical Notes 04-23-2021 to 06-03-2021 Kristina Allison RN - 06/03/2021 11:29 AM Carlie Stanford RN - 06/03/2021 10:58 AM Leela Rodriguez MD - 06/03/2021 10:30 AM Leela Rodriguez MD - 06/03/2021 10:30 AM EDT Note Date & Type Note Facility 06-03-2021 Note HNO ID: [id number] Author: Kristina Allison RN Service: ? Author Type: Registered Nurse Type: Nursing Progress Note Filed: 06/03/2021 11:47 AM Note Text: Pt received in PACU. Pt awake. Denies pain or nausea. Abd soft and non distended. Kristina Allison RN [facility] 06-03-2021 Nurse Note Pt received in PACU. Pt awake. Denies pain or nausea. Abd soft and non distended. Kristina Allison RN [facility] PRE-OP NURSING HAND OFF NOTE SBAR Hand off given to Daina Walker RN. Hand off was communicated verbally and at the patient's bedside and all questions were answered. Salena Stanford RN documented in this encounter [facility] 06-03-2021 History and physical note UPDATED PROCEDURAL SEDATION HISTORY AND PHYSICAL EXAMINATION SERVICE DATE: 06/03/2021 SERVICE TIME: 10:58 AM PHYSICAL EXAM MUST BE COMPLETED ON ADMISSION PROCEDURE: Procedure Indications: The History and Physical (completed in the past 30 days) has been reviewed and the patient has been examined. The contents accurately reflect the patient's condition with the following additions or revisions since the H&P was completed. ASA Class: ASA Class:: Patient with mild systemic disease Examination indicates no changes. AIRWAY: Airway Visualization of Uvula: Yes Mouth opening greater than 2 fingerbreadths: Yes Neck Full Range of Motion: Yes LUNGS: Lungs clear to auscultation CARDIAC: Regular rhythm,Regular rate Provisional Diagnosis/Treatment Plan: screening colonoscopy SEDATION GOAL: Moderate This H&P can be found in the attached. SIGNATURE: Doc Rodriguez MD PATIENT NAME: Kristina Toribio DATE: June 03, 2021 TIME: 10:58 AM Images from the original note were not included. HISTORY AND PHYSICAL Kristina Toribio 1950 REFERRING PHYSICIAN: Audrey Marte DO CHIEF COMPLAINT: Consult (colonoscopy) HPI: The patient is a 70 year old female referred for endoscopy. Kristina notes no colon complaints. Patient denies any change in bowel habits, weight changes, blood in stools, black tarry stools or abdominal pain. Denies family history of colon issues. The patient notes no upper GI complaints. Kristina has undergone prior endoscopy. Last colonoscopy was performed in [address] Rodriguez for follow-up of diverticulitis episode. Patient's past medical history is significant for type II diabetes mellitus. Patient follows with Dr. Marte in primary care for her chronic medical conditions. She denies chest pain, shortness of breath or recent hospitalizations. Denies problems with sedation in the past. PAST MEDICAL HISTORY PAST MEDICAL HISTORY Diagnosis Date Diffuse cystic mastopathy Diverticulitis of colon (without mention of hemorrhage)(562.11) Elevated blood pressure Elevated cholesterol Seasonal allergies Type II or unspecified type diabetes mellitus without mention of complication, not stated as uncontrolled metformin PAST SURGICAL HISTORY PAST SURGICAL HISTORY Procedure Laterality Date APPENDECTOMY BIOPSY BREAST OPEN INCISIONAL Bx of breast, incisional, right breast CARPAL TUNNEL RIGHT WRIST COLONOSCOPY FLX DX W/COLLJ SPEC WHEN PFRMD Colonoscopy CONIZATION CERVIX W/WO D&C RPR ELTRD EXC LEEP-Cervix DILATION & CURETTAGE DX&/THER NONOBSTETRIC IUD REMOVAL 08/12/2010 Copper 7 IUD LEFT WRIST CARPAL TUNNEL ONLY PAST SURGICAL HISTORY OF Revision of a right hammertoe PAST SURGICAL HISTORY OF breast reduction TONSILLECTOMY PRIMARY/SECONDARY <AGE 10 Tonsillectomy CURRENT MEDICATIONS Current Outpatient Medications Medication Sig ascorbic acid (VITAMIN C ORAL) Take 500 mg by mouth once daily. cholecalciferol, vitamin D3, (VITAMIN D3 ORAL) Take 50 mg by mouth once daily. ibuprofen (MOTRIN) 200 mg tablet Take 200 mg by mouth every 6 hours as needed. acetaminophen (TYLENOL ORAL) Take by mouth once daily. elderberry fruit (ELDERBERRY ORAL) Take by mouth once daily. MEDICATION, NON-DATABASE Take by mouth as needed. Sleep time plus, with valerian metFORMIN (GLUCOPHAGE) 500 mg tablet Take 500 mg by mouth four times daily. BIOTIN ORAL Take by mouth once daily. aspirin, enteric coated 81 mg EC tablet Take 81 mg by mouth. Takes twice a month lisinopril (PRINIVIL) 10 mg ORAL tablet Take 1 tablet by mouth once daily. Pt unaware of dosage hydrochlorothiazide 25 mg ORAL tablet Take by mouth every other day. simvastatin 20 mg ORAL tablet Take one(1) tablet daily. patient unsure of dosage DAILY MULTIVITAMIN TAB Take one(1) tablet daily. flaxseed 1,000 mg cap Take by mouth. (Patient not taking: Reported on 04/23/2021 ) No current facility-administered medications for this visit. ALLERGIES: Sumycin [Tetracycline Hcl] PERSONAL HISTORY: SOCIAL HISTORY Social History Tobacco Use Smoking status: Never Smoker Smokeless tobacco: Never Used Vaping Use Vaping Use: Never used Substance Use Topics Alcohol use: Yes Comment: Occasionally Drug use: No FAMILY HISTORY: FAMILY HISTORY FAMILY HISTORY Problem Relation Age of Onset Heart Mother Diabetes Mother Heart Father Diabetes Father Breast Cancer Maternal Grandmother REVIEW OF SYMPTOMS: The review of systems data was entered by the nurse and reviewed by me Nursing Notes: Isela Ordoñez LPN 04/23/2021 8:48 AM Signed REVIEW OF SYSTEMS: General: The patient denies fatigue, denies weight loss, denies weight gain, denies feeling hot, and denies feelings of cold. Eyes: The patient denies glaucoma, denies eye injury/surgery, wears glasses or contacts. Ear/Nose/Throat: The patient denies allergies, denies hayfever, notes ear infections, and denies bloody noses. Cardiovascular: The patient denies chest pain, denies heart disease, notes high blood pressure,denies cardiac stent, denies prior heart attack, denies irregular heart beat, notes high cholesterol, denies poor circulation, denies heart failure, other cardiac issues, denies claudication, denies cold feet, denies peripheral arterial stent. Respiratory: The patient denies tuberculosis, notes pneumonia, denies frequent cough, denies pulmonary embolism, denies shortness of breath, and denies coughing up blood. Gastrointestinal: The patient denies difficulty swallowing, denies acid reflux, denies ulcers, denies vomiting, notes jaundice/hepatitis, denies gallbladder problems, denies black or tarry stools, notes hemorrhoids, denies bleeding from rectum, notes diverticulitis, denies constipation, denies diarrhea, denies loss of stool control, and denies hernias. Kidney/Bladder: The patient denies kidney stones, denies urine infections, and denies bloody urine. Skin: The patient denies a history of skin cancer, denies bleeding/changing moles, and denies a history of skin rash. Neurologic: The patient denies a history of epilepsy/convulsions, denies headaches, denies head/spinal injuries, and denies stroke/TIA. Psychiatric: The patient denies psychiatric medications, denies depression, and denies voices, denies substance abuse. Endocrine: The patient denies thyroid disorders, notes diabetes, and denies hormonal problems. Hematologic: The patient denies a history of bruising, denies bleeding, and denies anemia, denies blood clots. Infections: The patient notes a history of measles and mumps, denies rheumatic fever, and denies sexually transmitted diseases. Musculoskeletal: The patient denies back pain/injury, denies back problems, denies sciatica, notes knee/foot trouble, notes arthritis, or denies gout. When was patient's last Mammogram screening? 2020 Last Colonoscopy: 10 years ago Isela Ordoñez LPN I have confirmed and edited as necessary, the PFSH and ROS obtained by others. Melba Tristan PA-C PHYSICAL EXAMINATION: General: The patient is 70 year old female, well nourished, well hydrated in no acute distress. The patient is oriented to time, place, and person. VITALS: Blood pressure 108/78, pulse 103, temperature 36.6 C (97.9 F), height 157.5 cm (5' 2 ), weight 66.7 kg (147 lb), SpO2 98 %. Body mass index is 26.89 kg/m . HEENT: Normal cephalic, ataumatic, pupils are equally round, sclera are anicteric, mucous membranes are moist, oropharynx is clear. Neck has no masses, asymmetry or lymphadenopathy. Respiratory: Clear to auscultation and percussion. Normal respiratory excursion and pattern. Cardiac: Examination is regular rate and rhythm. Normal S1/S2 Abdominal exam: Soft, nontender, with no palpable masses. No hepatosplenomegaly. No palpable hernias. Extremities: no clubbing, cyanosis or edema. No adenopathy. LABORATORY VALUES: As Noted RADIOLOGIC STUDIES: As Noted Assessment IMPRESSION: encounter for screening colonoscopy PLAN: I have reviewed my findings with the surgeon. Will plan for lower endoscopy. We discussed the risks and benefits of the planned endoscopy. I have informed the patient that complications can occur including failure to complete the endoscopy and perforation. The patient had the opportunity to ask questions concerning the planned endoscopy. My staff has also explained the procedure to the patient in understandable terms and has given the patient printed material concerning the procedure. The patient freely consents to surgery. The patient was offered a surgery/procedure at a [facility] facility. I have counseled the patient regarding the risk of exposure to and/or potential harm posed by the COVID-19 virus with having a surgery/procedure at this time versus the risk of delaying the surgery/procedure. It is not possible to know either the risk of delaying the surgery or procedure or chance of getting an infection with perfect accuracy, but a joint decision was made between the patient and myself to proceed at this time with endoscopy. I plan to use Golytely bowel preparation Patient instructed to contact PCP for instructions regarding diabetic medication, which may require adjustment during bowel preparation and/or day of procedure Diagnoses: (Z12.11) Encounter for screening for malignant neoplasm of colon (primary encounter diagnosis) Consultation requested by Dr. Marte for an opinion regarding screening colonoscopy. My final recommendations will be communicated back to the requesting physician by way of shared Medical record or letter to requesting physician via US mail. Melba Tristan PA-C documented in this encounter [facility] 04-24-2021 Miscellaneous Notes 06-03-2021 Colon documented in this encounter [facility] 04-23-2021 Note HNO ID: [id number] Author: Melba Tristan PA-C Service: ? Author Type: Physician School Age Lead Teacher Type: Progress Notes Filed: 04/23/2021 4:33 PM Note Text: HISTORY AND PHYSICAL Kristina Toribio 1950 REFERRING PHYSICIAN: Audrey Marte DO CHIEF COMPLAINT: Consult (colonoscopy) HPI: The patient is a 70 year old female referred for endoscopy. Kristina notes no colon complaints. Patient denies any change in bowel habits, weight changes, blood in stools, black tarry stools or abdominal pain. Denies family history of colon issues. The patient notes no upper GI complaints. Kristina has undergone prior endoscopy. Last colonoscopy was performed in [address] Rodriguez for follow-up of diverticulitis episode. Patient's past medical history is significant for type II diabetes mellitus. Patient follows with Dr. Marte in primary care for her chronic medical conditions. She denies chest pain, shortness of breath or recent hospitalizations. Denies problems with sedation in the past. PAST MEDICAL HISTORY Diagnosis Date - Diffuse cystic mastopathy - Diverticulitis of colon (without mention of hemorrhage)(562.11) - Elevated blood pressure - Elevated cholesterol - Seasonal allergies - Type II or unspecified type diabetes mellitus without mention of complication, not stated as uncontrolled metformin PAST SURGICAL HISTORY Procedure Laterality Date - APPENDECTOMY - BIOPSY BREAST OPEN INCISIONAL Bx of breast, incisional, right breast - CARPAL TUNNEL RIGHT WRIST - COLONOSCOPY FLX DX W/COLLJ SPEC WHEN PFRMD Colonoscopy - CONIZATION CERVIX W/WO DANDC RPR ELTRD EXC LEEP-Cervix - DILATION AND CURETTAGE DXAND/THER NONOBSTETRIC - IUD REMOVAL 08/12/2010 Copper 7 IUD - LEFT WRIST CARPAL TUNNEL ONLY - PAST SURGICAL HISTORY OF Revision of a right hammertoe - PAST SURGICAL HISTORY OF breast reduction - TONSILLECTOMY PRIMARY/SECONDARY Tonsillectomy Current Outpatient Medications Medication Sig - ascorbic acid (VITAMIN C ORAL) Take 500 mg by mouth once daily. - cholecalciferol, vitamin D3, (VITAMIN D3 ORAL) Take 50 mg by mouth once daily. - ibuprofen (MOTRIN) 200 mg tablet Take 200 mg by mouth every 6 hours as needed. - acetaminophen (TYLENOL ORAL) Take by mouth once daily. - elderberry fruit (ELDERBERRY ORAL) Take by mouth once daily. - MEDICATION, NON-DATABASE Take by mouth as needed. Sleep time plus, with valerian - metFORMIN (GLUCOPHAGE) 500 mg tablet Take 500 mg by mouth four times daily. - BIOTIN ORAL Take by mouth once daily. - aspirin, enteric coated 81 mg EC tablet Take 81 mg by mouth. Takes twice a month - lisinopril (PRINIVIL) 10 mg ORAL tablet Take 1 tablet by mouth once daily. Pt unaware of dosage - hydrochlorothiazide 25 mg ORAL tablet Take by mouth every other day. - simvastatin 20 mg ORAL tablet Take one(1) tablet daily. patient unsure of dosage - DAILY MULTIVITAMIN TAB Take one(1) tablet daily. - flaxseed 1,000 mg cap Take by mouth. (Patient not taking: Reported on 04/23/2021 ) No current facility-administered medications for this visit. ALLERGIES: Sumycin [Tetracycline Hcl] PERSONAL HISTORY: Social History Tobacco Use - Smoking status: Never Smoker - Smokeless tobacco: Never Used Vaping Use - Vaping Use: Never used Substance Use Topics - Alcohol use: Yes Comment: Occasionally - Drug use: No FAMILY HISTORY: FAMILY HISTORY Problem Relation Age of Onset - Heart Mother - Diabetes Mother - Heart Father - Diabetes Father - Breast Cancer Maternal Grandmother REVIEW OF SYMPTOMS: The review of systems data was entered by the nurse and reviewed by ne Nursing Notes: Isela Ordoñez LPN 04/23/2021 8:48 AM Signed REVIEW OF SYSTEMS: General: The patient denies fatigue, denies weight loss, denies weight gain, denies feeling hot, and denies feelings of cold. Eyes: The patient denies glaucoma, denies eye injury/surgery, wears glasses or contacts. Ear/Nose/Throat: The patient denies allergies, denies hayfever, notes ear infections, and denies bloody noses. Cardiovascular: The patient denies chest pain, denies heart disease, notes high blood pressure,denies cardiac stent, denies prior heart attack, denies irregular heart beat, notes high cholesterol, denies poor circulation, denies heart failure, other cardiac issues, denies claudication, denies cold feet, denies peripheral arterial stent. Respiratory: The patient denies tuberculosis, notes pneumonia, denies frequent cough, denies pulmonary embolism, denies shortness of breath, and denies coughing up blood. Gastrointestinal: The patient denies difficulty swallowing, denies acid reflux, denies ulcers, denies vomiting, notes jaundice/hepatitis, denies gallbladder problems, denies black or tarry stools, notes hemorrhoids, denies bleeding from rectum, notes diverticulitis, denies constipation, denies diarrhea, denies loss of stool control, and denies hernias. Kidney/ (more content not included)... [facility] Diagnosis Encounter for colonoscopy following surgery for colon cancer Follow-up examination, following other surgery documented in this encounter [facility]* Name Dates Details How to access health informa tion online Indication:Diabetes mellitus type II, controlled Start:12-Apr-2015 Instruction Type:Patient Education How to access health informa tion online - Detail Indication:Diabetes mellitus type II, controlled Start:12-Apr-2015 Instruction Type:Patient Education Patient Instructions Indication:Diabetes mellitus type II, controlled Start:12-Apr-2015 Instruction Type:Provider Instructions for Treatment How to access health informa tion online Indication:Sinusitis Start:22-Mar-2015 Instruction Type:Patient Education How to access health informa tion online - Detail Indication:Sinusitis Start:22-Mar-2015 Instruction Type:Patient Education Patient Instructions Indication:Sinusitis Start:22-Mar-2015 Instruction Type:Provider Instructions for Treatment How to access health informa tion online Indication:Diabetes mellitus type 2, uncontrolled, without complications Start:02-Jan-2015 Instruction Type:Patient Education How to access health informa tion online - Detail Indication:Diabetes mellitus type 2, uncontrolled, without complications Start:02-Jan-2015 Instruction Type:Patient Education Patient Instructions Indication:Diabetes mellitus type 2, uncontrolled, without complications Start:02-Jan-2015 Instruction Type:Provider Instructions for Treatment How to access health informa tion online Indication:Diabetes mellitus type 2, uncontrolled, without complications Start:05-Oct-2014 Instruction Type:Patient Education How to access health informa tion online - Detail Indication:Diabetes mellitus type 2, uncontrolled, without complications Start:05-Oct-2014 Instruction Type:Patient Education Patient Instructions Indication:Diabetes mellitus type 2, uncontrolled, without complications Start:05-Oct-2014 Instruction Type:Provider Instructions for Treatment How to access health informa tion online Indication:Knee pain Start:20-Jun-2014 Instruction Type:Patient Education How to access health informa tion online - Detail Indication:Knee pain Start:20-Jun-2014 Instruction Type:Patient Education Patient Instructions Indication:Knee pain Start:20-Jun-2014 Instruction Type:Provider Instructions for Treatment Patient Instructions Indication:THUMB PAIN Start:06-Nov-2013 Instruction Type:Provider Instructions for Treatment How to access health informa tion online Indication:Diabetes mellitus type 2, uncontrolled, without complications Start:04-Sep-2013 Instruction Type:Patient Education How to access health informa tion online - Detail Indication:Diabetes mellitus type 2, uncontrolled, without complications Start:04-Sep-2013 Instruction Type:Patient Education Patient Instructions Indication:Diabetes mellitus type 2, uncontrolled, without complications Start:04-Sep-2013 Instruction Type:Provider Instructions for Treatment Patient Instructions Indication:Serous conjunctivitis, unspecified laterality Start:13-Jul-2013 Instruction Type:Provider Instructions for Treatment Patient Instructions Indication:Acute pharyngitis Start:18-Nov-2012 Instruction Type:Provider Instructions for Treatment Patient Instructions Indication:Diabetes mellitus type II, controlled Start:01-Aug-2012 Instruction Type:Provider Instructions for Treatment Patient Instructions Indication:Cough Start:15-Dec-2011 Instruction Type:Provider Instructions for Treatment [facility] Work Phone: reason for referral (narrative)* Outpatient Procedure (Routine) - Authorized Specialty Diagnoses / Procedures Referred By Varun dumont Referred To Contact [facility] [place] Diagnoses Encounter for colonoscopy following surgery for colon cancer Procedures COLONOSCOPY SCREENING COLONOSCOPY FLX DX W/COLLJ SPEC WHEN Melba Perry PA-C [id number] [place] [address] Referral ID Status Reason Start Date Expiration Date Visits Requested Visits Authorized [id number] Authorized Auto-Generat ed Referral 04/24/2021 04/24/2022 1 1 [facility] for referral (narrative)* Outpatient Procedure (Routine) - Closed Specialty Diagnoses / Procedures Referred By Varun dumont Referred To Contact [facility] Diagnoses Encounter for colonoscopy following surgery for colon cancer Procedures COLONOSCOPY SCREENING COLONOSCOPY FLX DX W/COLLJ SPEC WHEN Melba Perry PA-C [address] [place] [address] [place] [address] Referral ID Status Reason Start Date Expiration Date V isits Requested Visits Authorized [id number] Closed Auto-Generate d Referral 04/24/2021 04/24/2022 1 1 [facility] for visit Narrative* Outpatient Procedure (Routine) - Closed Specialty Diagnoses / Procedures Referred By Varun t Referred To Contact [facility] Diagnoses Encounter for colonoscopy following surgery for colon cancer Procedures COLONOSCOPY SCREENING COLONOSCOPY FLX DX W/COLLJ SPEC WHEN PFRMD Melba Tristan PA-C [address] 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 Advance Directive(s) 05/06/2021 2:21 PM Documents on File Type Date Recorded 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 Advance Directive(s) 06/03/2021 9:49 AM Advance Directive(s) 05/06/2021 2:21 PM Medications Administered Section Inactive Administered Medications - up to 3 most recent administrations Medication Order MAR Action Action Date Dose Rate Site fentaNYL 50 mcg/mL 25-100 mcg injection (SUBLIMAZE) 25-100 mcg, INTRAVENOUS, DIRECTED, Starting on Wed06/03/21 at 1130, Until Wed06/03/21 at 1529, DOSING DIRECTED BY PHYSICIAN FOR PROCEDURAL SEDATION ONLY, Intraprocedure Given 06/03/2021 11:10 AM EDT 25 mcg Summary Purpose Additional Source Comments Source Comments (unrecognize d section and content) In the event this informatio n is protected by the Federal Confidentiality of Alcohol and Drug Abuse Patient Records regulations: The Federal rules restrict any use of the information to criminally investigate or prosecute any alcohol or drug abuse patient.[facility] the event this information is protected by the Federal Confidentiality of Alcohol and Drug Abuse Patient Records regulations: The Federal rules restrict any use of the information to criminally investigate or prosecute any alcohol or drug abuse patient.[facility] Reason for Visit (unrecogniz ed section and content) Care Teams (unrecognized sec tion and content) Bank Operations Officer Relationship Specialty Start Date End Date Cruz Guido MD [address] [place] [id number] PCP - General Family Practice 03/31/21 INFORMATION SOURCE (unrecogn ized section and content) FOR RECORDS PERTAINING TO PATIENTS WHO ARE OR HAVE BEEN ENROLLED IN A CHEMICAL DEPENDENCY/SUBSTANCEABUSE PROGRAM, SOME INFORMATION MAY BE OMITTED. This clinical summary was aggregated from multiple sources. Caution should be exercised in using it in the provision of clinical care. This summary normalizes information from multiple sources, and as a consequence, information in this document may materially change the coding, format and clinical context of patient data. In addition, data may be omitted in some cases. CLINICAL DECISIONS SHOULD BE BASED ON THE PRIMARY CLINICAL RECORDS. [employer] provides no warranty or guarantee of the accuracy or completeness of information in this document.
[2023-03-11 10:57] LABS: AST(SGOT) 35 U/L (15-37); Alanine Aminotransfer ALT/SGPT 47 U/L (13-56); Albumin, Serum 3.8 g/dL (3.2-5.0); Alkaline Phosphatase 79 U/L (45-117); Anion Gap 7 (5-15); BUN 16 mg/dL (7-18); BUN/Creat Ratio 20.7 RATIO (10-20); Calcium,Total 9.7 mg/dL (8.5-10.1); Chloride 105 mmol/L (98-107); Creatinine, Serum 0.77 mg/dL (0.55-1.02); EST Glomerular Filtration Rate 78 mL/min (>60); Est Glom Filt Rate - Afr Amer 94 mL/min (>60); Globulin 3.8 g/dL (2.2-4.2); Glucose 138 mg/dL (74-106); Potassium 4.3 mmol/L (3.5-5.1); Protein, Total 7.6 g/dL (6.4-8.2); Sodium Level 138 mmol/L (136-145)
[2023-03-11 11:01] LABS: Hemoglobin A1c 6.4 % (3.8-5.6)
[2023-03-11 11:53] LABS: Microalbumin,Random Urine 9.9 mg/L (NO RANGE EST.); Microalbumin:Creatinine Ratio 13.2 mg/g CRE (<30 mg/g CRE)
== END | disposition home or self-care (01) ==
LOC: MFPLAB 09:11
PROVIDERS: PCP Family Medicine; Visit Provider Family Medicine
DX: E11.9 Type 2 diabetes mellitus without complications (principal)
CPT/HCPCS: 36415; 80053; 82043; 82570; 83036

== ENCOUNTER 2023-07-08 11:30 | Outpatient (RCR) | payer MEDICARE, SELFPAY ==
--- NOTE | 2023-06-08 14:43 | HP.PTEVAL ---
Patient's Visit Information Visit Information Visit Information: CHARISMA SHARPE is a 72 year old F referred to Physical Therapy by Dr. Cruz Guido MD with a diagnosis of R HAMSTRING AND ADDUCTOR STRAIN. Date of Evaluation: 06/08/23 Physical Therapist: Ny Jhonson PT, Cert MDT Visit Plan Frequency: 2x /Week Duration: 4-6 Weeks Plan: GAIT TRAINING. R LE ROM, STRETCHING AND STRENGTHENING. MH AND/OR CP NEEDED. Subjective Subjective: Work/Leisure: RETIRED Present symptoms: R POSTERIOR THIGH AND JEROD R KNEE PAIN Present since: ABOUT 3 WKS AGO Pain Scale: WORST 7/10, LEAST 3/10 Currently: 5/10 Is it getting better, worse or staying the same: GETTING BETTER Commenced as a result of: FELL OVER A THEATER CHAIR Symptoms at onset: POSTERIOR R THIGH PAIN AND BRUISING FROM R GROIN TO R LATERAL THIGH. Worse: SITTING ON THE EDGE OF A CHAIR, WALKING, STRETCHING IT, DIFFICULTY GETTING SHOES AND SOCKS ON, STEPS, CARRYING THINGS, GETTING IN/OUT OF CAR, GETTING IN/OUT OF BED, GETTING IN/OUT OF THE SHOWER. Better: IBUPROFEN, VOLTERAN CREAM, HEAT, SITTING DOWN Disturbed sleep: YES Previous history/Previous treatment: UNREMARKABLE Treatment this episode: REST, ICE, HEAT Gait: NO AD'S. WALL WALKING IN THE BEGINNING. Imaging: NONE PMH/Recent major surgery: NIDDM, HTN, CAD Objective Objective: THIS PATIENT AMBULATES INDEP'LY INTO PT TODAY WITH A SLOW ANTALGIC GAIT WITH A MILD LIMP ON THE R LE AND DECREASED JEROD STRIDE LENGTH. NO AD'S AND NO LOB. Sensory deficit: JEROD LE LIGHT TOUCH SENSATION GROSSLY INTACT AND SYMMETRICAL ROM deficit: FULL JEROD KNEE EXT TO 140 DEG FLEX R AND 146 DEG FLEX L WITH A HEEL SLIDE IN SUPINE. Motor deficit: L LE: HIP 4/5, KNEE FLEX 4/5, KNEE EXT 4/5, ANKLE 5/5. R LE: HIP FLEX 4-/5, ABD 4-/5, ADD 3+/5, EXT 4-/5, KNEE EXT 4-/5, KNEE FLEX 3+/5, ANKLE DORSI 4-/5, ANKLE PLANTAR FLEX 4-/5. Reflexes: DTR'S 2+/5 JEROD LE'S. Core strength: POOR Palpation: TENDERNESS WITH LIGHT PALPATION OF JEROD AND POSTERIOR R KNEE REGIONS. MEDIAL, LATERAL AND POSTERIOR R THIGH REGIONS AND RIGHT BUTTOCK REGIONS AT ORIGIN OF HS'S. ALSO TENDER ALONG R HIP ADDUCTORS BUT MORE TENDER ALONG IT BAND THAN MEDIALLY. VERY MINIMAL VISUAL BRUISING AT THIS POINT. POSTERIOR R THIGH. Balance/Special Test Scores Lower Extremity Functional Score: 5 Goals Goal 1:: DECREASE C/O R LE PAIN BY AT LEAST 75% TO EASE ADL'S Goal Time Frame: 4-6 Weeks Goal 2:: RESTORE R LE ROM SYMMETRICAL TO L LE. Goal Time Frame: 6-8 Weeks Goal 3:: NORMALIZE GAIT PATTERN ON LEVEL SURFACES Goal Time Frame: 2-4 Weeks Goal 4:: INDEP GAIT UP AND DOWN STEPS WITH ONE HR reciprocally WITHOUT LIMITATION Goal Time Frame: 8-12 Weeks Goal 5:: RESTORE R LE STRENGTH SYMMETRICALLY WITH LLE Goal Time Frame: 6-8 Weeks Goal 6:: INDEP HEP Goal Time Frame: 8-12 Weeks Rehabilitation Potential Physical Therapy Diagnosis: R HIP, KNEE AND ANKLE WEAKNESS. R KNEE STIFFNESS. DIFFICULTY WITH GAIT, TRANSFERS AND ADL'S. Rehabilitation Potential: Good Anticipated Interventions Patient/Client Instruction: Educate patient on: Condition, Plan of Care and Risk Factors For the Purpose of:: To improve self management Therapeutic Exercise to Include: Strength training, Flexibilty training and Gait and locomotor training For the Purpose of:: To decrease pain, To increase ROM, To improve muscle performance and motor function, To increase tolerance to activity/condition/position, To improve ability of physical actions for home/community/work/leisure, To improve gait and locomotor functions and To increase flexibility/ROM Text: Thank you for the opportunity to evaluate your patient. For Medicare and Medicare HMO plans, please review the plan of care and approve it. It will need to be FAXED BACK to us at [phone] for Medicare purposes. For Medicare only, by signing this I certify the plan of care. Please let me know if there are questions or concerns regarding this plan of care. Physician Signature: Date:
--- NOTE | 2023-07-08 13:53 | HP.PTDCSUM_ITS ---
Discharge Summary D/C summary: It has been my pleasure to treat CHARISMA SHARPE referred by Dr. Cruz Guido MD, with the diagnosis of R HAMSTRING AND ADDUCTOR STRAIN for a total of 10 visit(s). Discharge Date: 07/08/23 Please see the following information for a summary of their discharge status. Subjective Subjective: PATIENT REPORTS SHE IS HARDLY HAVING ANY PAIN NOW. NOW SHE JUST HAS TENDERNESS IN THE LEG. SHE STATES MOST EVERYTHING HAS GOT BETTER AND SHE IS STIL L WORKING ON STEPS. SHE STATES SHE IS STILL LIMITED IN WALKING BY HER HIPS BUT FAR THE INJURY GOES SHE IS MOSTLY RECOVERED. SHE REPORTS SHE IS STILL APPREHENSIVE ABOUT WALKING BUT IT ISN'T PAINFUL. STATES SHE IS STILL WORRIED ABOUT MIS-STEPPING WHEN ON VERY UNEVEN SURFACES BUT STATES IT IS GETTING BETTER. STATES SHE FEELS READY TO CONTINUE THE EX'S ON HER OWN NOW. Pain R HS: Pain Intensity (Out of 10): 1 Overall Improvement % Improvement: 95 Objective Objective/Function: ALL PT GOALS HAVE BEEN MET AND PATIENT IS INDEP WITH A HEP. SHE IS APPROPRIATE FOR AND AGREEABLE TO D/C. UPON EXAM TODAY: THIS PATIENT AMBULATES INDEP'LY INTO PT TODAY WITH NO AD'S AND NO GROSS DEVIATIONS NOTED. SHE IS ABLE TO ASCEND AND DESCEND STEPS RECIP WITH ONE HR. Sensory deficit: JEROD LE LIGHT TOUCH SENSATION GROSSLY INTACT AND SYMMETRICAL ROM deficit: FULL JEROD KNEE EXT TO 145 DEG FLEX B WITH A HEEL SLIDE IN SUPINE. Motor deficit: JEROD HIPS 4/5, KNEES 5/5, ANKLES 5/5. Core strength: FAIR Palpation: NO ACUTE R LE TENDERNESS WITH LIGHT TO MEDIUM PALPATION TODAY. PATIENT REPORTS THE TENDERNESS IS MUCH BETTER BUT IT STILL FEELS BRUISED IF SHE PUSHES HARD IN SPOTS. Goals Goal 1:: DECREASE C/O R LE PAIN BY AT LEAST 75% TO EASE ADL'S Goal Progress: Goal Met Goal 2:: RESTORE R LE ROM SYMMETRICAL TO L LE. Goal Progress: Goal Met Goal 3:: NORMALIZE GAIT PATTERN ON LEVEL SURFACES Goal Progress: Goal Met Goal 4:: INDEP GAIT UP AND DOWN STEPS WITH ONE HR reciprocally WITHOUT LIMITATION Goal Progress: Goal Met Goal 5:: RESTORE R LE STRENGTH SYMMETRICALLY WITH LLE Goal Progress: Goal Met Goal 6:: INDEP HEP Goal Progress: Goal Met Plan Plan: D/C TO HEP. PATIENT AGREEABLE. D/C Information d/c sentence: If there are questions or concerns regarding this patient's physical therapy, please feel free to call me at [phone]. Thank you for the referral of this patient. Sincerely, Ny Johnson, PT, Cert MDT Balance/Gait/Functional tests Balance/Special Test Scores Lower Extremity Functional Score: 58 30 Second Chair Rise Test Seconds: 13 Improvement % Improvement: 95
== END 2023-07-08 14:17 | disposition home or self-care (01) ==
LOC: PT 11:30
PROVIDERS: PCP Family Medicine; Referring Provider Family Medicine; Visit Provider Family Medicine
DX: S76.211D Strain of adductor muscle, fascia and tendon of right thigh, subsequent encounter (principal); S76.811D Strain of other specified muscles, fascia and tendons at thigh level, right thigh, subsequent encounter
CPT/HCPCS: 97110; 97162; 97530

== ENCOUNTER → 2023-09-17 | Outpatient (CLI) | payer MEDICARE, SELFPAY ==
--- NOTE | 2023-09-17 11:42 | RAD_ITS ---
STUDY: X-RAY - LEFT CLAVICLE REASON FOR EXAM: Female, 72 years old. left medial swelling TECHNIQUE: 2 view(s) of the clavicle. COMPARISON: None. FINDINGS: Normal clavicle. Normal acromioclavicular articulation. Normal visualized sternoclavicular articulation. Normal visualized pulmonary apex. RAD/Clavicle IMPRESSION: Normal x-ray examination of the clavicle. Electronically Signed: Doc Foster MD at 17:44 EDT ,
[2023-09-17 15:31] LABS: ALB/GLOB Ratio 1.2 RATIO (0.9-2.4); AST(SGOT) 34 U/L (15-37); Alanine Aminotransfer ALT/SGPT 43 U/L (13-56); Albumin, Serum 4.1 g/dL (3.2-5.0); Alkaline Phosphatase 74 U/L (45-117); Anion Gap 9 (5-15); BUN 20 mg/dL (7-18); BUN/Creat Ratio 27.5 RATIO (10-20); Calcium,Total 9.2 mg/dL (8.5-10.1); Chloride 101 mmol/L (98-107); Creatinine, Serum 0.73 mg/dL (0.55-1.02); EST Glomerular Filtration Rate 83 mL/min (>60); Est Glom Filt Rate - Afr Amer 101 mL/min (>60); Globulin 3.3 g/dL (2.2-4.2); Glucose 157 mg/dL (74-106); Protein, Total 7.4 g/dL (6.4-8.2); Sodium Level 136 mmol/L (136-145)
[2023-09-17 15:41] LABS: Hemoglobin A1c 7.2 % (3.8-5.6)
[2023-09-17 16:11] LABS: Microalbumin,Random Urine 6.4 mg/L (NO RANGE EST.); Microalbumin:Creatinine Ratio 32.6 mg/g CRE (<30 mg/g CRE)
== END | disposition home or self-care (01) ==
PROVIDERS: PCP Family Medicine; Referring Provider Family Medicine; Visit Provider Family Medicine
DX: I10 Essential (primary) hypertension (principal); E11.9 Type 2 diabetes mellitus without complications
CPT/HCPCS: 36415; 73000; 80053; 82043; 82570; 83036

== ENCOUNTER → 2024-03-14 | Outpatient (CLI) | payer MEDICARE, SELFPAY ==
[2024-03-14 15:26] LABS: ALB/GLOB Ratio 1.2 RATIO (0.9-2.4); AST(SGOT) 35 U/L (15-37); Alanine Aminotransfer ALT/SGPT 38 U/L (13-56); Albumin, Serum 4.2 g/dL (3.2-5.0); Alkaline Phosphatase 65 U/L (45-117); Anion Gap 9 (5-15); BUN 16 mg/dL (7-18); Calcium,Total 9.7 mg/dL (8.5-10.1); Chloride 101 mmol/L (98-107); EST Glomerular Filtration Rate 74 mL/min (>60); Est Glom Filt Rate - Afr Amer 90 mL/min (>60); Globulin 3.6 g/dL (2.2-4.2); Glucose 135 mg/dL (74-106); Protein, Total 7.8 g/dL (6.4-8.2); Sodium Level 136 mmol/L (136-145)
[2024-03-14 16:05] LABS: Microalbumin,Random Urine 5.6 mg/L (NO RANGE EST.); Microalbumin:Creatinine Ratio 14.5 mg/g CRE (<30 mg/g CRE)
== END | disposition home or self-care (01) ==
LOC: MFPLAB 11:32
PROVIDERS: PCP Family Medicine; Referring Provider Family Medicine; Visit Provider Family Medicine
DX: I10 Essential (primary) hypertension (principal); E11.9 Type 2 diabetes mellitus without complications

== ENCOUNTER → 2024-07-21 | Outpatient (CLI) | payer MEDICARE, SELFPAY ==
[2024-07-21 12:35] LABS: Anion Gap 13 (5-15); BUN 15 mg/dL (4-19); BUN/Creat Ratio 20.4 RATIO (10-20); Calcium,Total 9.6 mg/dL (7.6-11.0); Carbon Dioxide 23.1 mmol/L (21.0-32.0); Chloride 101 mmol/L (98-108); Creatinine, Serum 0.75 mg/dL (0.70-1.20); EST Glomerular Filtration Rate 83 (>60); Glucose 158 mg/dL (70-99); Potassium 4.5 mmol/L (3.3-5.1); Pro- Brain NATRIURETIC PEPTIDE 41 pg/mL (<=1800); Sodium Level 137 mmol/L (133-145)
== END | disposition home or self-care (01) ==
LOC: MFPLAB 10:55
PROVIDERS: PCP Family Medicine; Visit Provider Nurse Practitioner Family
DX: M79.89 Other specified soft tissue disorders (principal)
CPT/HCPCS: 36415; 80048; 83880

== ENCOUNTER → 2024-09-15 | Outpatient (CLI) | payer MEDICARE, SELFPAY ==
[2024-09-15 16:12] LABS: AST(SGOT) 28 U/L (<=31); Alanine Aminotransfer ALT/SGPT 30 U/L (<=34); Albumin, Serum 4.5 g/dL (3.4-4.8); Alkaline Phosphatase 52 U/L (35-104); Anion Gap 13 (5-15); BUN 16 mg/dL (4-19); BUN/Creat Ratio 22.1 RATIO (10-20); Calcium,Total 9.8 mg/dL (7.6-11.0); Carbon Dioxide 25.2 mmol/L (21.0-32.0); Chloride 101 mmol/L (98-108); Cholesterol 150 mg/dL (<=200); Globulin 2.7 g/dL (2.2-4.2); Glucose 158 mg/dL (70-99); Low Density Lipoprotein Calc. 20 mg/dL; Potassium 4.1 mmol/L (3.3-5.1); Triglycerides 451 mg/dL; Very Low Density Lipoprotein 90 mg/dL (5-40); cholesterol:hdl ratio screen 3.78
== END | disposition home or self-care (01) ==
LOC: MFPLAB 11:14
PROVIDERS: PCP Family Medicine; Referring Provider Family Medicine; Visit Provider Family Medicine
DX: E11.9 Type 2 diabetes mellitus without complications (principal)
CPT/HCPCS: 36415; 80053; 80061; 83036

== ENCOUNTER → 2024-11-07 | Outpatient (CLI) | payer MEDICARE, SELFPAY ==
--- NOTE | 2024-11-07 13:32 | BI_ITS ---
EXAM: SCRN MAMM (CAD)W/IIRNA BILAT DATE: 11/07/2024 CLINICAL HISTORY: F, Age 73 y/o , SCREENING Grandmother with breast cancer. History of remote left excisional breast biopsy. TECHNIQUE: Procedure Code: [id number] Modality: MG Procedure: SCRN MAMM (CAD)W/IRINA BILAT COMPARISON: Prior exam(s) dated April 22, 2022.. FINDINGS: TISSUE DENSITY: The breasts are heterogeneously dense, which may obscure small masses. Bilateral Breast Mammographic Findings: No significant masses, calcifications or other abnormalities are identified. Stable scattered microcalcifications bilaterally some of the calcifications are dermal in nature. No focal cluster is seen. No suspicious masses, areas of developing architectural distortion, or suspicious calcifications. There has been no significant interval change. BI/SCRN MAMM (CAD)W/IRINA BILAT IMPRESSION: Stable bilateral screening mammogram. OVERALL FINAL ASSESSMENT BI-RADS 2: BENIGN RECOMMENDATION: Routine annual follow-up in 1 Year A letter with findings and recommendations will be mailed to the patient. Reading Location: [id number]
== END | disposition home or self-care (01) ==
LOC: OPBI 13:31
PROVIDERS: PCP Family Medicine; Referring Provider Family Medicine; Visit Provider Family Medicine
DX: Z12.31 Encounter for screening mammogram for malignant neoplasm of breast (principal)
CPT/HCPCS: 77063; 77067